=== PATIENT | male | born 1940 | race African-American/Black ===

== ENCOUNTER 2018-11-01 09:53 | Observation (INO) | payer OTHER ==
[2018-11-01] MEDS ORDERED: NALOXONE 0.4 MG/ML VIAL ONE (10:20)
[2018-11-01 10:31] LABS: Absolute Lymphocytes (CBC) 0.4 K/uL (0.7-4.9); Basophils % 0.3 % (0-1.3); Hematocrit 32.4 % (39.6-49.0); MPV 8.4 fL (7.6-11.3); RBC Red Blood Cell Count 3.59 M/uL (4.33-5.43)
[2018-11-01 10:34] LABS: Protime INR 1.29
[2018-11-01 10:43] LABS: ALT/SGPT 16 U/L (12-78); AST/SGOT 17 U/L (15-37); Albumin 3.4 g/dL (3.4-5.0); Alkaline Phosphatase 68 U/L (45-117); BUN Blood Urea Nitrogen 13 mg/dL (7-18); Bicarbonate 27 mmol/L (21-32); Bilirubin Direct 0.1 mg/dL (0-0.2); Bilirubin Total 0.3 mg/dL (0.2-1.0); CKMB Creatine Kinase MB 2.2 ng/mL (0.3-3.6); Creatine Phosphokinase 100 U/L (39-308); Glucose Level 281 mg/dL (74-106); Lipase 406 U/L (73-393); Potassium 4.2 mmol/L (3.5-5.1); Protein, Total 7.5 g/dL (6.4-8.2); Sodium Level 141 mmol/L (136-145); Troponin (Emerg Dept Use Only) 0.02 ng/mL (0.0-0.045)
[2018-11-01] MEDS ORDERED: CEFTRIAXONE/SWI 1gm 1 GM/10 ML SYR ONE (10:46)
[2018-11-01] MEDS ORDERED: NA CHLORIDE 0.9% 2,000 ML ONE (10:55)
--- NOTE | 2018-11-01 11:24 | EDPHYS ---
Physician Documentation [facility] Name: Del Elizondo Jr Age: 78 yrs Sex: Male : 1940 Arrival Date: 11/01/2018 Time: 09:55 Bed 6 Private MD: ED Physician Calixto Velazco HPI: 11/01 10:17 This 78 yrs old Black Male presents to ER via EMS with complaints of Altered Mental kdr Status. 10:17 The patient presents with decreased responsiveness. Onset: The symptoms/episode kdr began/occurred at an unknown time. Last known well was 4:00 PM yesterday. Actual onset is onknown. Possible causes: CVA or TIA, sepsis. Associated signs and symptoms: The patient has no apparent associated signs or symptoms. Current symptoms: In the emergency department the patient's symptoms are unchanged from the initial presentation. Patient's baseline: Neuro: alert and fully oriented, Motor: no deficits, Left BKA, Ambulation: unable to walk, Speech: normal for age. It is unknown whether or not the patient has had similar symptoms in the past. It is unknown whether or not the patient has recently seen a physician. Historical: - Allergies: 10:08 ACETAMINOPHEN; iw 10:08 Hydrochlorothiazide; iw 10:08 hydrocodone bitartrate (bulk); iw 10:08 Lisinopril; iw 10:08 tramadol; iw 10:04 hydrocodone bitartrate (bulk); tw2 10:04 Lisinopril; tw2 10:04 ACETAMINOPHEN; tw2 10:04 tramadol; tw2 10:04 Hydrochlorothiazide; tw2 - Home Meds: 10:04 Ativan 0.5 mg Oral tab 1 tab 3 times per day [Active]; Vitamin B-12 1,000 mcg Oral TbER tw2 [Active]; Eliquis 5 mg oral tab 1 tab 2 times per day [Active]; Imodium 2 mg Oral [Active]; metformin 500 mg Oral tab 1 tab 2 times per day [Active]; melatonin 3 mg Oral tab [Active]; metoprolol tartrate 25 mg Oral tab 1 tab 2 times per day [Active]; Miralax 17 gram Oral pwpk 1 packet once daily [Active]; thiamine HCl (vitamin B1) 100 mg Oral tab [Active]; modafinil 100 mg oral tab 2 tabs once daily [Active]; - PMHx: 10:08 Diabetes - NIDDM; Hypertension; Left BKA; iw 10:04 Diabetes - NIDDM; Hypertension; LEFT bka; tw2 - Immunization history:: Adult Immunizations. - Social history:: Smoking status: . - Ebola Screening: : Patient denies travel to an Ebola-affected area in the 21 days before illness onset. ROS: 10:17 Constitutional: Unable to assess due to AMS kdr 10:17 Unable to obtain ROS due to altered mental status. Exam: 10:17 Constitutional: This is a well developed, well nourished patient who is awake, alert, kdr and in no acute distress. Head/Face: Normocephalic, atraumatic. Eyes: Pupils equal round, pinpoint and poorly reactive to light. Lids and lashes normal. Conjunctiva and sclera are non-icteric and not injected. Cornea within normal limits. Periorbital areas with no swelling, redness, or edema. Neck: Trachea midline, no thyromegaly or masses palpated, and no cervical lymphadenopathy. Supple, full range of motion without nuchal rigidity, or vertebral point tenderness. No Meningismus. Chest/axilla: Normal chest wall appearance and motion. Nontender with no deformity. No lesions are appreciated. Cardiovascular: Regular rate and rhythm with a normal S1 and S2. No gallops, murmurs, or rubs. Normal PMI, no JVD. No pulse deficits. Respiratory: Lungs have equal breath sounds bilaterally, clear to auscultation and percussion. No rales, rhonchi or wheezes noted. No increased work of breathing, no retractions or nasal flaring. Abdomen/GI: Soft, non-tender, with normal bowel sounds. No distension or tympany. No guarding or rebound. No evidence of tenderness throughout. Back: No spinal tenderness. No costovertebral tenderness. Full range of motion. Skin: Warm, dry with normal turgor. Normal color with no rashes, no lesions, and no evidence of cellulitis. 10:17 Neuro: Exam negative for Unable to assess as the patient is not responsive to commands. 10:17 Psych: Exam negative for Unassessed due to AMS. Vital Signs: 10:08 BP 144 / 74; Pulse 89; Resp 16 S; Pulse Ox 100% on R/A; iw 10:10 Temp 97.9; sg 10:30 Weight 70.31 kg; sg 10:58 BP 136 / 64; Pulse 87; Resp 16; Pulse Ox 100% on R/A; tw2 11:58 BP 141 / 67; Pulse 82; Resp 17; Pulse Ox 99% on R/A; tw2 12:32 BP 123 / 71; Pulse 95; Resp 16; Pulse Ox 100% on R/A; tw2 13:40 BP 122 / 71; Pulse 81; Resp 17; Pulse Ox 99% on R/A; sg MDM: 10:09 Patient medically screened. 10:17 Data reviewed: vital signs, nurses notes, lab test result(s), EKG, radiologic studies. kdr Counseling: I had a detailed discussion with the patient and/or guardian regarding: the historical points, exam findings, and any diagnostic results supporting the discharge/admit diagnosis, lab results, radiology results. 11:46 ED course: D/w Dr. Lui. Since the patient is now able to talk and answer limited [facility] questions, will admit in observation status. 11/01 10:04 Order name: Glucose, Ancillary Testing; Complete Time: 10:17 EDNV 11/01 10:08 Order name: Basic Metabolic Panel [facility] 11/01 10:08 Order name: Blood Culture Adult (2) [facility] 11/01 10:08 Order name: CBC with Diff [facility] 11/01 10:08 Order name: Ckmb [facility] 11/01 10:08 Order name: CPK; Complete Time: 11:17 [facility] 11/01 10:08 Order name: Lactate; Complete Time: 11:17 [facility] 11/01 10:08 Order name: LFT's; Complete Time: 11:17 [facility] 11/01 10:08 Order name: Lipase; Complete Time: 11:17 [facility] 11/01 10:08 Order name: Procalcitonin; Complete Time: 11:17 [facility] 11/01 10:08 Order name: Protime (+inr); Complete Time: 11:17 [facility] 11/01 10:08 Order name: Ptt, Activated; Complete Time: 11:17 [facility] 11/01 10:08 Order name: Troponin (emerg Dept Use Only); Complete Time: 11:17 [facility] 11/01 10:08 Order name: Urine Microscopic Only [facility] 11/01 10:08 Order name: Chest Single View XRAY kdr 11/01 10:08 Order name: Accucheck; Complete Time: 11:48 kdr 11/01 10:08 Order name: Cardiac monitoring; Complete Time: 11:48 [facility] 11/01 10:08 Order name: EKG - Nurse/Tech; Complete Time: 11:48 [facility] 11/01 10:08 Order name: IV Saline Lock - Large Bore; Complete Time: 11:48 [facility] 11/01 10:08 Order name: Labs collected and sent; Complete Time: 11:48 [facility] 11/01 10:08 Order name: CT Head Brain wo Cont kdr 11/01 10:10 Order name: Basic Metabolic Panel; Complete Time: 11:17 EDMS 11/01 10:10 Order name: CKMB Creatine Kinase MB; Complete Time: 11:17 EDNV 11/01 11:50 Order name: Urine Dipstick--Ancillary (enter results) de 11/01 13:11 Order name: Glucose, Ancillary Testing EDNV 11/01 13:22 Order name: CBC Smear Scan EDNV 11/01 10:08 Order name: O2 Per Protocol; Complete Time: 11:48 [facility] 11/01 10:08 Order name: O2 Sat Monitoring; Complete Time: 11:48 [facility] 11/01 10:08 Order name: Urine Dipstick-Ancillary (obtain specimen); Complete Time: 11:48 [facility] 11/01 12:38 Order name: Cath; Complete Time: 12:38 sg Administered Medications: 10:10 Drug: NARcan 0.4 mg Route: IVP; Site: left antecubital; sg 12:36 Follow up: Response: No adverse reaction; No change in condition sg 11:00 Drug: NS 0.9% (30 ml/kg) 30 ml/kg Route: IV; Rate: bolus; Site: left antecubital; sg 11:13 Drug: Rocephin - (cefTRIAXone) 1 grams Route: IVPB; Infused Over: 30 mins; Site: left sg antecubital; 11:40 Follow up: Response: No adverse reaction; IV Status: Completed infusion sg 12:07 Drug: Insulin Regular Human 6 units {Co-Signature: tw2 (Millie Barrientos RN).} Route: IVP; sg Site: left antecubital; Disposition: 11/01/18 11:23 Hospitalization ordered by Ochoa Lui for Observation. Preliminary diagnosis are Altered mental status, unspecified, Hyperglycemia, unspecified. - Bed requested for Telemetry/MedSurg (observation). - Status is Observation. ms - Condition is Guarded. - Problem is new. - Symptoms are unchanged. UTI on Admission? No Signatures: Dispatcher [employer] EDSj Evans, RN RN sg Calixto Velazco MD MD kdr Kendra Domínguez RN RN iw Nishi Morales ms Kaye, Fox, PA PA Millie Hill RN RN tw2 Millie Barrientos RN tw2 Corrections: (The following items were deleted from the chart) 11:46 11:23 Hospitalization Ordered by Ochoa Sania YANG for Inpatient Admission. Preliminary kdr diagnosis is Altered mental status, unspecified; Hyperglycemia, unspecified. Bed requested for Telemetry/MedSurg (Inpatient). Status is Inpatient Admission. Condition is Guarded. Problem is new. Symptoms are unchanged. UTI on Admission? No. kdr 12:48 11:46 11/01/2018 11:23 Hospitalization Ordered by Ochoa Sania YANG for Observation. iw Preliminary diagnosis is Altered mental status, unspecified; Hyperglycemia, unspecified. Bed requested for Telemetry/MedSurg (observation). Status is Observation. Condition is Guarded. Problem is new. Symptoms are unchanged. UTI on Admission? No. kdr 14:05 12:48 11/01/2018 11:23 [facility] ms Preliminary diagnosis is Altered mental status, unspecified; Hyperglycemia, unspecified. Bed requested for Telemetry/MedSurg (observation). Status is Observation. Condition is Guarded. Problem is new. Symptoms are unchanged. UTI on Admission? No. iw
--- NOTE | 2018-11-01 11:24 | ER ---
Nurse's Notes [facility] Name: Del Elizod[facility] Jr Age: 78 yrs Sex: Male : 1940 Arrival Date: 11/01/2018 Time: 09:55 Bed 6 Private MD: Diagnosis: Altered mental status, unspecified;Hyperglycemia, unspecified Presentation: 11/01 09:55 Presenting complaint: EMS states: pt is normally A\T\OX4, this morning has not been iw responding verbally, pt has also had copious amounts of vomiting, also had diarrhea, last seen normal at 4 pm yesterday. Transition of care: patient was received from another setting of care (long-term care facility), [facility]. Onset of symptoms was November 01, 2018. Risk Assessment: Do you want to hurt yourself or someone else? Patient reports no desire to harm self or others. Initial Sepsis Screen: Does the patient meet any 2 criteria? Altered Mental Status. Does the patient have a suspected source of infection? No. Patient's initial sepsis screen is negative. Care prior to arrival: Medication(s) given: Normal saline infusion, 500 mL, IV initiated. 20 GA, in the left antecubital area, Glucose check: 300. 09:55 Method Of Arrival: EMS: [facility] iw 09:55 Acuity: TATIANA 2 iw Historical: - Allergies: 10:08 ACETAMINOPHEN; iw 10:08 Hydrochlorothiazide; iw 10:08 hydrocodone bitartrate (bulk); iw 10:08 Lisinopril; iw 10:08 tramadol; iw 10:04 hydrocodone bitartrate (bulk); tw2 10:04 Lisinopril; tw2 10:04 ACETAMINOPHEN; tw2 10:04 tramadol; tw2 10:04 Hydrochlorothiazide; tw2 - Home Meds: 10:04 Ativan 0.5 mg Oral tab 1 tab 3 times per day [Active]; Vitamin B-12 1,000 mcg Oral TbER tw2 [Active]; Eliquis 5 mg oral tab 1 tab 2 times per day [Active]; Imodium 2 mg Oral [Active]; metformin 500 mg Oral tab 1 tab 2 times per day [Active]; melatonin 3 mg Oral tab [Active]; metoprolol tartrate 25 mg Oral tab 1 tab 2 times per day [Active]; Miralax 17 gram Oral pwpk 1 packet once daily [Active]; thiamine HCl (vitamin B1) 100 mg Oral tab [Active]; modafinil 100 mg oral tab 2 tabs once daily [Active]; - PMHx: 10:08 Diabetes - NIDDM; Hypertension; Left BKA; iw 10:04 Diabetes - NIDDM; Hypertension; LEFT bka; tw2 - Immunization history:: Adult Immunizations. - Social history:: Smoking status: . - Ebola Screening: : Patient denies travel to an Ebola-affected area in the 21 days before illness onset. Screenin:00 Fall Risk Secondary diagnosis (15 points) impaired mobility. tw2 10:30 Abuse screen: Denies threats or abuse. Denies injuries from another. Nutritional sg screening: No deficits noted. Tuberculosis screening: No symptoms or risk factors identified. Never had TB. Assessment: 10:00 General: Appears in no apparent distress. well groomed, well developed, well nourished, sg Behavior is calm, cooperative, appropriate for age. Pain: Unable to use pain scale. Does not appear to understand pain scale. Neuro: Level of Consciousness is awake, obeys commands, Oriented to will not speak at this time. Cardiovascular: Patient's skin is warm and dry. Chest pain is denied. Respiratory: Airway is patent Respiratory effort is even, unlabored, Respiratory pattern is regular, symmetrical, Breath sounds are clear bilaterally. GI: Abdomen is flat, non-distended. : in a clean brief at this time. EENT: No signs and/or symptoms were reported regarding the EENT system. Derm: Skin is pink, warm \T\ dry. Musculoskeletal: No signs and/or symptoms reported regarding the musculoskeletal system. 10:37 Reassessment: Patient appears in no apparent distress at this time. Patient and/or tw2 family updated on plan of care and expected duration. Pain level reassessed. 11:09 Reassessment: Patient appears in no apparent distress at this time. Patient and/or sg family updated on plan of care and expected duration. Pain level reassessed. four attempts for 2nd set of blood cultures, non successful. notified. 12:33 Reassessment: Patient appears in no apparent distress at this time. Patient and/or tw2 family updated on plan of care and expected duration. Pain level reassessed. Vital Signs: 10:08 BP 144 / 74; Pulse 89; Resp 16 S; Pulse Ox 100% on R/A; iw 10:10 Temp 97.9; sg 10:30 Weight 70.31 kg; sg 10:58 BP 136 / 64; Pulse 87; Resp 16; Pulse Ox 100% on R/A; tw2 11:58 BP 141 / 67; Pulse 82; Resp 17; Pulse Ox 99% on R/A; tw2 12:32 BP 123 / 71; Pulse 95; Resp 16; Pulse Ox 100% on R/A; tw2 13:40 BP 122 / 71; Pulse 81; Resp 17; Pulse Ox 99% on R/A; sg ED Course: 09:40 Initial lab(s) drawn, by me, sent to lab. Maintain EMS IV. Dressing intact. Good blood sg return noted. Site clean \T\ dry. Gauge \T\ site: 20 G LAC. 09:55 Patient arrived in ED. iw 09:59 Millie Barrientos RN is Primary Nurse. tw2 10:04 Calixto Velazco MD is Attending Physician. kdr 10:04 EKG done, by ED staff, reviewed by Calixto Velazco MD. dh3 10:07 Triage completed. iw 10:08 Arm band placed on. iw 10:08 Patient has correct armband on for positive identification. Bed in low position. Call sg light in reach. Side rails up X2. manager monitoring on. Pulse ox on. NIBP on. Warm blanket given. Head of bed. 10:30 initial lactate sent. Missed attempt(s): 22 gauge in right forearm. Bleeding sg controlled, band aid applied, catheter tip intact. 10:37 Chest Single View XRAY In Process Unspecified. EDMS 10:42 First set of blood cultures drawn by me. Missed attempt(s): 22 gauge in right forearm. dh3 Bleeding controlled, band aid applied, catheter tip intact. 10:44 CT Head Brain wo Cont In Process Unspecified. EDMS 11:22 Ochoa Lui DO is Hospitalizing Provider. kdr 11:42 Straight cath inserted, using sterile technique, 15 Fr Returned clear yellow urine. dh3 Patient tolerated well. 100mL specimen collected. 13:50 No provider procedures requiring assistance completed. Patient admitted, IV remains in sg place. intact, No redness/swelling at site. Administered Medications: 10:10 Drug: NARcan 0.4 mg Route: IVP; Site: left antecubital; sg 12:36 Follow up: Response: No adverse reaction; No change in condition sg 11:00 Drug: NS 0.9% (30 ml/kg) 30 ml/kg Route: IV; Rate: bolus; Site: left antecubital; sg 11:13 Drug: Rocephin - (cefTRIAXone) 1 grams Route: IVPB; Infused Over: 30 mins; Site: left sg antecubital; 11:40 Follow up: Response: No adverse reaction; IV Status: Completed infusion sg 12:07 Drug: Insulin Regular Human 6 units {Co-Signature: tw2 (Millie Barrientos RN).} Route: IVP; sg Site: left antecubital; Outcome: 11:23 Decision to Hospitalize by Provider. kdr 13:50 Admitted to Tele accompanied by tech, room 420, with chart, Report called to Arleth moreira RN 13:50 Condition: stable 13:50 Instructed on the need for admit, safety practices, Demonstrated understanding of instructions. 14:05 Patient left the ED. ms Signatures: Dispatcher [employer] EDMS Sj Mcintyre RN RN sg Rittger, Kevin, MD MD kdr Kendra Domínguez RN RN Nishi Morales ms Millie Barrientos RN RN 2 Shasta Baker [facility] Millie Barrientos RN tw2 Corrections: (The following items were deleted from the chart) 10:19 10:19 Inserted saline lock: 22 gauge in right antecubital area, using aseptic tw2 technique. Blood collected. tw2 10:59 10:37 Reassessment: Patient appears in no apparent distress at this time. Patient tw2 and/or family updated on plan of care and expected duration. Pain level reassessed. Patient is alert, oriented x 3, equal unlabored respirations, skin warm/dry/pink. sg
[2018-11-01 12:11] LABS: Urine Bacteria <20 /HPF (NONE SEEN); Urine Culture Reflex Order NOT NEEDED; Urine RBC <5 /HPF (NONE SEEN)
[2018-11-01] MEDS ORDERED: INSULIN -REGULAR HUMAN 50 UNIT/0.5 ML ML ONE (12:13)
[2018-11-01 12:56] LABS: Urine Blood NEGATIVE (NEG); Urine Glucose 2+ (NEG); Urine Protein 2+ (NEG)
[2018-11-01 13:20] LABS: Absolute Monocytes 0.2 K/uL (0.1-1.3)
[2018-11-01 13:21] LABS: Blood Morphology Comment NOT SEEN (NOT SEEN); Platelet Estimate ADEQ; Urine White Blood Cell Casts OK
--- NOTE | 2018-11-01 14:09 | P.HP ---
Certification for Inpatient Patient admitted to: Observation With expected LOS: <2 Midnights Patient will require the following post-hospital care: Other (Back to shelter) Practitioner: I am a practitioner with admitting privileges, knowledge of patient current condition, hospital course, and medical plan of care. Services: Services provided to patient in accordance with Admission requirements found in Title 42 Section 412.3 of the Code of Federal Regulations Patient History Date of Service: 11/01/18 Primary Care Provider: [facility] Reason for admission: Altered mental status History of Present Illness: 78-year-old male presented to the emergency room with altered mental status mainly confusion. Patient is a resident at [facility]. Patient with history of diabetes, hypertension and takes chronic anti coagulation therapy for history of DVT. ER reports that shelter mentioned that he was doing well prior to 4:00 p.m. yesterday. Patient was found confused today. He was brought in for further evaluation. No indication of chest pain, shortness of breath, fever or chills noted. Upon initial evaluation in the emergency room vital signs were stable. He was afebrile. Patient did not appear in any respiratory distress. Initial workup so for unremarkable. CT head negative. Chest x-ray negative. Hemoglobin 10.5 , white count 5.6. Sodium 141, potassium 4.2, BUN of 13, creatinine 0.94 with a GFR of greater than 90. Glucose was elevated upon arrival. Lactic acid negative. Pro calcitonin negative. Urine unremarkable. Patient was given Narcan in the ER. Patient was admitted for further evaluation. When I saw the patient in the ER, he appeared confused but able to answer questions appropriately with nodding and with voice. He appeared weak. He was able to move all 4s. Patient with history of left below-knee amputation. Allergies acetaminophen [From [place]] Allergy (Verified 10/17/14 13:35) Anaphylaxis hydrocodone bitartrate [From [place]] Allergy (Verified 10/17/14 13:35) Anaphylaxis lisinopril Allergy (Verified 10/01/14 21:23) Nausea/Vomiting tramadol Allergy (Verified 10/01/14 21:23) Nausea/Vomiting Home medications list reviewed: Yes Home Medications: Aspirin 81 mg PO DAILY 10/01/14 Olmesartan Medoxomil [Benicar] 5 mg PO DAILY 10/01/14 Glyburide [Diabeta] 1.25 mg PO BID #60 tablet 10/06/14 Hydrocodone 7.5/APAP 325 [[place] 7.5/325 mg*] 1 tab PO Q4H PRN #60 tab 10/06/14 Metoprolol Tartrate [Lopressor*] 50 mg PO BID #60 tab 10/06/14 Minocycline HCl [Minocin] 100 mg PO BID #20 capsule 10/06/14 Valsartan [Diovan*] 160 mg PO BID #60 tab 10/06/14 Metformin HCl [Glucophage] 1,000 mg PO BID 10/17/14 Valsartan [Diovan] 160 mg PO BID 10/17/14 - Past Medical/Surgical History Diabetic: Yes -: Diabetes mellitus type 2 -: HTN -: 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 - Family History Family History: Reviewed- Non-Contributory - Family History Mother -: Diabetes - Social History Smoking Status: Unknown if ever smoked Alcohol use: No CD- Drugs: No Caffeine use: No Place of [facility] Review of Systems is unable to be obtained Physical Examination - Physical Exam General: Alert, In no apparent distress, Cooperative, Cachectic, Disheveled, Other (Patient able to follow commands. He does nod to questions. He is able to answer some questions by voice.) HEENT: Atraumatic, Normocephalic, Other (Pupils pinpoint but equal. Dry mucous membranes noted.) Neck: Supple, No Thyromegaly Respiratory: Clear to auscultation bilaterally, Normal air movement Cardiovascular: Normal pulses, Regular rate/rhythm Gastrointestinal: Normal bowel sounds, Soft and benign, Non-distended, No tenderness, No masses, No rebound, No guarding Musculoskeletal: No tenderness, No warmth Integumentary: Tenderness/swelling (Mild pitting edema to the lower extremities bilateral), Other (Left below-knee amputation) Neurological: Normal speech, Normal strength at 5/5 x4 extr, Normal tone, Other (Confused) - Studies Laboratory Data (last 24 hrs) 11/01/18 10:10: PT 15.1 H, INR 1.29, APTT 32.2 11/01/18 10:10: WBC 5.6, Hgb 10.5 L, Hct 32.4 L, Plt Count 186 11/01/18 10:10: Sodium 141, Potassium 4.2, BUN 13, Creatinine 0.94, Glucose 281 H, Total Bilirubin 0.3, AST 17, ALT 16, Alkaline Phosphatase 68, Lipase 406 H Assessment and Plan - Plan Impression: Altered mental status mainly confusion etiology unknown possibly medication related Diabetes mellitus type 2 with hyperglycemia Hypertension History of left below-knee amputation 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 Case discussed with Neurology. So far no evidence of infection. Will order echocardiogram, carotid Doppler and stroke protocol MRI to further assess. Will also order EEG. Patient is taking modafinil. Will discontinue this medication as recommended by neurology. Will need to call shelter to evaluate baseline status and to see if patient was given any new medication recently. Will also call family for details. Will continue to monitor and reassess. Fall precautions, aspiration precaution, and seizure precaution in place. Will have physical therapy, occupational therapy and speech therapy evaluate patient. Diabetes mellitus type 2 with hyperglycemia: Will monitor Accu-Cheks and sliding scale. Hypertension: Will continue with shelter medication-metoprolol. Will monitor and adjust appropriately. History of left below-knee amputation: Stump appears without any ulcers. 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 Discharge Plan: [facility] Plan to discharge in: 24 Hours - Advance Directives Does patient have a Living Will: No Does patient have a Durable POA for Healthcare: No - Code Status/Comfort Care Code Status Assessed: No (Will need to assess advanced directives with family) Time Spent Managing Pts Care (In Minutes): 55
--- NOTE | 2018-11-01 14:11 | RAD REPORT ---
EXAM DESCRIPTION: CT - Head Brain Wo Cont - 11/01/2018 11:49 am CLINICAL HISTORY: Alteration of awareness/confusion COMPARISON: None TECHNIQUE: Computed axial tomography of the head was obtained. IV contrast was not requested. All CT scans are performed using dose optimization technique as appropriate and may include automated exposure control or mA/KV adjustment according to patient size. FINDINGS: An intracranial bleed is not seen . The ventricles are normal in caliber. No extra-axial fluid collection is noted. Mild to moderate low-density areas within periventricular, deep and subcortical white matter likely represent ischemic changes secondary to small vessel disease . Fluid within the sinuses/ mastoids is not seen. IMPRESSION: No acute intracranial abnormality is seen. If patient's symptoms persist MRI of the bra in would be recommended.
--- OUTSIDE RECORDS SUMMARY | 2018-11-01 14:35 | XMS REPORT | Clinical Summary ---
:1940 Author Organization [facility] Address [address] [place] [address] Care Team Providers Name Role Phone Eliana Jesus MD Primary Care Provider Allergies Active Allergy Reactions Severity Noted Date Comments Hydrochlorothiazide Swelling High 04/21/2018 Tongue/Lip Lisinopril Swelling High 04/21/2018 Tongue/Lip Medications Medication Sig Dispensed Refills Start Date End Date Status aspirin Take 81 mg by 0 Active (ECOTRIN) 81 MG mouth daily. enteric coated tablet olmesartan Take 40 mg by 0 Active (BENICAR) 40 MG mouth daily. tablet metFORMIN Take 500 mg by 0 Active (GLUCOPHAGE) 500 mouth daily with mg tablet breakfast. glipiZIDE Take 5 mg by mouth 0 Active (GLUCOTROL) 2.5 2 (two) times a MG 24 hr tablet day with meals. acetaminophen-co Take 1 tablet by 0 Active deine (TYLENOL mouth as needed WITH CODEINE #3) for moderate pain. 300-30 mg per tablet furosemide Take 40 mg by 0 Discontinued (LASIX) 40 mg/4 mouth daily. 8 mL solution oral solution potassium Take 20 mEq by 0 Discontinued chloride mouth daily. 8 (K-DUR,KLOR-CON) Unknown dose 10 MEQ CR tablet amount furosemide Take 40 mg by 0 Discontinued (LASIX) 40 mg mouth daily. 8 tablet docusate sodium Take 1 capsule 60 capsule 0 04/30/2018 (COLACE) 100 MG (100 mg total) by 8 capsule mouth 2 (two) times a day for 30 days. bisacodyl Take 1 tablet (5 30 tablet 0 04/30/2018 (DULCOLAX) 5 mg mg total) by mouth 8 EC tablet daily as needed for constipation for up to 2 days. piperacillin-marleny Infuse 3.375 g 0 05/01/2018 obactam (ZOSYN) into a venous 8 3.375 gram in 50 catheter every 8 mL Mini-Bag Plus (eight) hours for 2 days. vancomycin 1,000 Infuse 1,000 mg 1 each 0 04/30/2018 mg in sodium into a venous 8 chloride 0.9% catheter every 18 250 mL IVPB (eighteen) hours for 2 days. ascorbic acid, Take 1 tablet (500 30 tablet 0 05/01/2018 vitamin C, mg total) by mouth 8 (VITAMIN C) 500 daily for 30 days. MG tablet zinc sulfate Take 1 capsule 60 capsule 0 04/30/2018 (ZINCATE) 220 (220 mg total) by 8 (50) mg capsule mouth 2 (two) times a day for 30 days. Active Problems Problem Noted Date Diabetic foot ulcer 04/21/2018 Encounters Date Type Specialty Care Team Description 04/25/2018 [facility] MD Cristóbal WOUND EXPLORATION, BKA REVISION 04/25/2018 Anesthesia Event General Surgery Cami Delarosa MD 04/21/2018 Anesthesia Event General Surgery Cami Delarosa MD 04/21/2018 [facility] Am[facility], Below MD Cristóbal Knee 04/21/2018 - Hospital Encounter General Internal Eliana Jesus Chronic systolic congestive heart failure (HCC); 04/30/2018 Medicine MD Guillermina Open wound of left lower extremity, initial encounter after 10/31/2017 Social History Tobacco Use Types Packs/Day Years Used Date Former Smoker Alcohol Use Drinks/Week oz/Week Comments No Alcohol Habits Answer Date Recorded How often do you have a drink containing alcohol? Never 04/21/2018 How many drinks containing alcohol do you have on a typical Not asked day when you are drinking? How often do you have six or more drinks on one occasion? Not asked Sex Assigned at Date Recorded Not on file Job Start Date Occupation Industry Not on file Not on file Not on file Travel History Travel Start Travel End No recent travel history available. Last Filed Vital Signs Vital Sign Reading Time Taken Blood Pressure 156/90 04/30/2018 7:00 PM [employer]URAL RESOURCE MANAGER Pulse 99 04/30/2018 7:00 PM NATURAL RESOURCE MANAGER Temperature 36.7 C (98 F) 04/30/2018 7:00 PM NATURAL RESOURCE MANAGER Respiratory Rate 20 04/30/2018 7:00 PM NATURAL RESOURCE MANAGER Oxygen Saturation 99% 04/30/2018 9:53 PM NATURAL RESOURCE MANAGER Inhaled Oxygen Concentration - - Weight 71.4 kg (157 lb 8 oz) 04/30/2018 5:18 AM NATURAL RESOURCE MANAGER Height 182.9 cm (6') 04/21/2018 3:15 AM NATURAL RESOURCE MANAGER Body Mass Index 21.36 04/21/2018 3:15 AM NATURAL RESOURCE MANAGER Plan of Treatment Health Maintenance Due Date Last Done Comments DIABETIC RETINAL EYE EXAM 1940 URINE MICROALBUMIN 1951 SHINGLES VACCINES (#1) 1991 65+ PNEUMOCOCCAL VACCINE (1 of 2 - PCV13) 2006 PNEUMOCOCCAL POLYSACCHARIDE VACCINE AGE 65 2006 AND OVER INFLUENZA VACCINE 01/03/2019 DIABETIC FOOT EXAM 04/21/2019 04/21/2018, 04/21/2018 Procedures Procedure Name Priority Date/Time Associated Comments Diagnosis POC GLUCOSE Routine 04/30/2018 9:25 Results for this PM [employer]URAL RESOURCE MANAGER procedure are in the results section. POC GLUCOSE Routine 04/30/2018 5:09 Results for this PM [employer]URAL RESOURCE MANAGER procedure are in the results section. POC GLUCOSE Routine 04/30/2018 11:34 Results for this AM [employer]URAL RESOURCE MANAGER procedure are in the results section. POC GLUCOSE Routine 04/30/2018 7:27 Results for this AM NATURAL RESOURCE MANAGER procedure are in the results section. POC GLUCOSE Routine 04/29/2018 8:54 Results for this PM [employer]URAL RESOURCE MANAGER procedure are in the results section. POC GLUCOSE Routine 04/29/2018 5:01 Results for this PM NATURAL RESOURCE MANAGER procedure are in the results section. POC GLUCOSE Routine 04/29/2018 12:23 Results for this PM [employer]URAL RESOURCE MANAGER procedure are in the results section. ESTIMATED GFR Routine 04/29/2018 6:40 Results for this AM NATURAL RESOURCE MANAGER procedure are in the results section. BASIC METABOLIC PANEL Routine 04/29/2018 6:40 Results for this AM NATURAL RESOURCE MANAGER procedure are in the results section. HC COMPLETE BLD COUNT Routine 04/29/2018 6:40 Results for this W/AUTO DIFF AM NATURAL RESOURCE MANAGER procedure are in the results section. PREPARE RBC Timed 04/29/2018 12:29 Results for this AM NATURAL RESOURCE MANAGER procedure are in the results section. TYPE AND SCREEN Timed 04/29/2018 12:29 Results for this AM NATURAL RESOURCE MANAGER procedure are in the results section. POC GLUCOSE Routine 04/28/2018 8:38 Results for this PM [employer]URAL RESOURCE MANAGER procedure are in the results section. POC GLUCOSE Routine 04/28/2018 4:48 Results for this PM [employer]URAL RESOURCE MANAGER procedure are in the results section. POC GLUCOSE Routine 04/28/2018 12:45 Results for this PM NATURAL RESOURCE MANAGER procedure are in the results section. POC GLUCOSE Routine 04/28/2018 7:50 Results for this AM NATURAL RESOURCE MANAGER procedure are in the results section. HC COMPLETE BLD COUNT Routine 04/28/2018 4:40 Results for this W/AUTO DIFF AM NATURAL RESOURCE MANAGER procedure are in the results section. POC GLUCOSE Routine 04/28/2018 4:36 Results for this AM NATURAL RESOURCE MANAGER procedure are in the results section. POC GLUCOSE Routine 04/27/2018 9:17 Results for this PM [employer]URAL RESOURCE MANAGER procedure are in the results section. VANCOMYCIN LEVEL, Timed 04/27/2018 8:55 Results for this TROUGH PM NATURAL RESOURCE MANAGER procedure are in the results section. POC GLUCOSE Routine 04/27/2018 5:14 Results for this PM NATURAL RESOURCE MANAGER procedure are in the results section. POC GLUCOSE Routine 04/27/2018 12:58 Results for this PM [employer]URAL RESOURCE MANAGER procedure are in the results section. POC GLUCOSE Routine 04/27/2018 7:50 Results for this AM NATURAL RESOURCE MANAGER procedure are in the results section. ESTIMATED GFR Routine 04/27/2018 5:50 Results for this AM NATURAL RESOURCE MANAGER procedure are in the results section. BASIC METABOLIC PANEL Routine 04/27/2018 5:50 Results for this AM NATURAL RESOURCE MANAGER procedure are in the results section. HC COMPLETE BLD COUNT Routine 04/27/2018 5:50 Results for this W/AUTO DIFF AM NATURAL RESOURCE MANAGER procedure are in the results section. POC GLUCOSE Routine 04/26/2018 9:44 Results for this PM [employer]URAL RESOURCE MANAGER procedure are in the results section. POC GLUCOSE Routine 04/26/2018 5:20 Results for this PM [employer]URAL RESOURCE MANAGER procedure are in the results section. POC GLUCOSE Routine 04/26/2018 12:19 Results for this PM [employer]URAL RESOURCE MANAGER procedure are in the results section. POC GLUCOSE Routine 04/26/2018 8:08 Results for this AM NATURAL RESOURCE MANAGER procedure are in the results section. ESTIMATED GFR Routine 04/26/2018 4:50 Results for this AM NATURAL RESOURCE MANAGER procedure are in the results section. COMPREHENSIVE Routine 04/26/2018 4:50 Results for this METABOLIC PANEL AM NATURAL RESOURCE MANAGER procedure are in the results section. HC COMPLETE BLD COUNT Routine 04/26/2018 4:50 Results for this W/AUTO DIFF AM NATURAL RESOURCE MANAGER procedure are in the results section. POC GLUCOSE Routine 04/25/2018 8:45 Results for this PM [employer]URAL RESOURCE MANAGER procedure are in the results section. POC GLUCOSE Routine 04/25/2018 5:13 Results for this PM [employer]URAL RESOURCE MANAGER procedure are in the results section. POC GLUCOSE Routine 04/25/2018 1:23 Results for this PM [employer]URAL RESOURCE MANAGER procedure are in the results section. POC GLUCOSE Routine 04/25/2018 12:26 Results for this PM [employer]URAL RESOURCE MANAGER procedure are in the results section. POC GLUCOSE Routine 04/25/2018 11:35 Results for this AM NATURAL RESOURCE MANAGER procedure are in the results section. SURGICAL PATHOLOGY Routine 04/25/2018 10:54 Results for this REQUEST AM NATURAL RESOURCE MANAGER procedure are in the results section. ANESTHESIA INTUBATION Routine 04/25/2018 9:43 AM NATURAL RESOURCE MANAGER Procedure Note - Sharlene Lares MD - 04/25/2018 9:43 AM NATURAL RESOURCE MANAGER ANESTHESIA INTUBATION Date/Time: 04/25/2018 9:34 AM Performed by: Sharlene Lares MD Authorized by: Sharlene Lares MD Location: OR Difficult Airway: No Anesthesiologist: Sharlene Lares MD Preoxygenated with 100% O2: Yes C-spine Precautions Maintained Throughout: Yes Mask Ventilation: Not attempted Final Airway Type: Supraglottic airway Final LMA: Unique LMA Size: 4 Number of Attempts at Approach: 1 POC GLUCOSE Routine 04/25/2018 8:03 AM Results for this [employer]URAL RESOURCE MANAGER procedure are in the results section. VANCOMYCIN LEVEL, Timed 04/25/2018 7:57 AM Results for this TROUGH NATURAL RESOURCE MANAGER procedure are in the results section. PREPARE RBC Timed 04/25/2018 4:15 AM Results for this NATURAL RESOURCE MANAGER procedure are in the results section. MANUAL DIFFERENTIAL Routine 04/25/2018 4:15 AM Results for this NATURAL RESOURCE MANAGER procedure are in the results section. PROTHROMBIN TIME WITH Routine 04/25/2018 4:15 AM Results for this INR NATURAL RESOURCE MANAGER procedure are in the results section. ESTIMATED GFR Routine 04/25/2018 4:15 AM Results for this NATURAL RESOURCE MANAGER procedure are in the results section. TYPE AND SCREEN Routine 04/25/2018 4:15 AM Results for this NATURAL RESOURCE MANAGER procedure are in the results section. PHOSPHORUS LEVEL Routine 04/25/2018 4:15 AM Results for this NATURAL RESOURCE MANAGER procedure are in the results section. MAGNESIUM LEVEL Routine 04/25/2018 4:15 AM Results for this NATURAL RESOURCE MANAGER procedure are in the results section. CBC WITH PLATELET AND Routine 04/25/2018 4:15 AM Results for this DIFFERENTIAL NATURAL RESOURCE MANAGER procedure are in the results section. BASIC METABOLIC PANEL Routine 04/25/2018 4:15 AM Results for this NATURAL RESOURCE MANAGER procedure are in the results section. POC GLUCOSE Routine 04/24/2018 9:50 PM Results for this NATURAL RESOURCE MANAGER procedure are in the results section. POC GLUCOSE Routine 04/24/2018 9:11 PM Results for this NATURAL RESOURCE MANAGER procedure are in the results section. POC GLUCOSE Routine 04/24/2018 4:33 PM Results for this NATURAL RESOURCE MANAGER procedure are in the results section. POC GLUCOSE Routine 04/24/2018 11:32 AM Results for this NATURAL RESOURCE MANAGER procedure are in the results section. POC GLUCOSE Routine 04/24/2018 7:45 AM Results for this NATURAL RESOURCE MANAGER procedure are in the results section. ESTIMATED GFR Routine 04/24/2018 4:20 AM Results for this NATURAL RESOURCE MANAGER procedure are in the results section. BASIC METABOLIC PANEL Routine 04/24/2018 4:20 AM Results for this NATURAL RESOURCE MANAGER procedure are in the results section. HC COMPLETE BLD COUNT Routine 04/24/2018 4:20 AM Results for this W/AUTO DIFF NATURAL RESOURCE MANAGER procedure are in the results section. POC GLUCOSE Routine 04/23/2018 9:08 PM Results for this NATURAL RESOURCE MANAGER procedure are in the results section. VANCOMYCIN LEVEL, Timed 04/23/2018 6:08 PM Results for this TROUGH NATURAL RESOURCE MANAGER procedure are in the results section. POC GLUCOSE Routine 04/23/2018 5:01 PM Results for this NATURAL RESOURCE MANAGER procedure are in the results section. POC GLUCOSE Routine 04/23/2018 10:56 AM Results for this NATURAL RESOURCE MANAGER procedure are in the results section. POC GLUCOSE Routine 04/23/2018 7:39 AM Results for this NATURAL RESOURCE MANAGER procedure are in the results section. POC GLUCOSE Routine 04/22/2018 9:17 PM Results for this NATURAL RESOURCE MANAGER procedure are in the results section. POC GLUCOSE Routine 04/22/2018 4:34 PM Results for this NATURAL RESOURCE MANAGER procedure are in the results section. US DUPLEX ARTERIAL Routine 04/22/2018 3:27 PM Results for this LOWER EXTREMITY RIGHT NATURAL RESOURCE MANAGER procedure are in the results section. POC GLUCOSE Routine 04/22/2018 1:11 PM Results for this NATURAL RESOURCE MANAGER procedure are in the results section. ECHOCARDIOGRAM 2D Routine 04/22/2018 11:00 AM Chronic systolic Results for this COMPLETE W MMODE NATURAL RESOURCE MANAGER congestive heart procedure are in SPECTRAL COLOR DOPPLER failure (HCC) the results (88141) section. POC GLUCOSE Routine 04/22/2018 8:58 AM Results for this NATURAL RESOURCE MANAGER procedure are in the results section. POC GLUCOSE Routine 04/22/2018 4:50 AM Results for this NATURAL RESOURCE MANAGER procedure are in the results section. PHOSPHORUS LEVEL STAT 04/22/2018 4:48 AM Results for this NATURAL RESOURCE MANAGER procedure are in the results section. ESTIMATED GFR STAT 04/22/2018 4:48 AM Results for this NATURAL RESOURCE MANAGER procedure are in the results section. COMPREHENSIVE METABOLIC STAT 04/22/2018 4:48 AM Results for this PANEL NATURAL RESOURCE MANAGER procedure are in the results section. PARTIAL THROMBOPLASTIN STAT 04/22/2018 4:48 AM Results for this TIME (PTT) NATURAL RESOURCE MANAGER procedure are in the results section. PROTHROMBIN TIME WITH STAT 04/22/2018 4:48 AM Results for this INR NATURAL RESOURCE MANAGER procedure are in the results section. LACTIC ACID LEVEL STAT 04/22/2018 4:48 AM Results for this NATURAL RESOURCE MANAGER procedure are in the results section. MAGNESIUM LEVEL STAT 04/22/2018 4:48 AM Results for this NATURAL RESOURCE MANAGER procedure are in the results section. IONIZED CALCIUM STAT 04/22/2018 4:48 AM Results for this NATURAL RESOURCE MANAGER procedure are in the results section. HC COMPLETE BLD COUNT STAT 04/22/2018 4:48 AM Results for this W/AUTO DIFF NATURAL RESOURCE MANAGER procedure are in the results section. POC GLUCOSE Routine 04/22/2018 12:47 AM Results for this NATURAL RESOURCE MANAGER procedure are in the results section. CT HEAD WO CONTRAST STAT 04/21/2018 11:18 PM Results for this NATURAL RESOURCE MANAGER procedure are in the results section. ECG 12-LEAD STAT 04/21/2018 10:56 PM Results for this NATURAL RESOURCE MANAGER procedure are in the results section. IONIZED CALCIUM, STAT 04/21/2018 10:48 PM Results for this ARTERIAL NATURAL RESOURCE MANAGER procedure are in the results section. ARTERIAL BLOOD GAS STAT 04/21/2018 10:48 PM Results for this NATURAL RESOURCE MANAGER procedure are in the results section. XR CHEST 1 VW PORTABLE STAT 04/21/2018 10:47 PM Results for this NATURAL RESOURCE MANAGER procedure are in the results section. LACTIC ACID LEVEL STAT 04/21/2018 10:45 PM Results for this NATURAL RESOURCE MANAGER procedure are in the results section. ESTIMATED GFR STAT 04/21/2018 10:45 PM Results for this NATURAL RESOURCE MANAGER procedure are in the results section. URINALYSIS SCREEN AND Routine 04/21/2018 10:45 PM Results for this MICROSCOPY, WITH REFLEX NATURAL RESOURCE MANAGER procedure are in TO CULTURE the results section. COMPREHENSIVE METABOLIC STAT 04/21/2018 10:45 PM Results for this PANEL NATURAL RESOURCE MANAGER procedure are in the results section. PARTIAL THROMBOPLASTIN STAT 04/21/2018 10:45 PM Results for this TIME (PTT) NATURAL RESOURCE MANAGER procedure are in the results section. PROTHROMBIN TIME WITH STAT 04/21/2018 10:45 PM Results for this INR NATURAL RESOURCE MANAGER procedure are in the results section. PHOSPHORUS LEVEL STAT 04/21/2018 10:45 PM Results for this NATURAL RESOURCE MANAGER procedure are in the results section. MAGNESIUM LEVEL STAT 04/21/2018 10:45 PM Results for this NATURAL RESOURCE MANAGER procedure are in the results section. HC COMPLETE BLD COUNT Routine 04/21/2018 10:45 PM Results for this W/AUTO DIFF NATURAL RESOURCE MANAGER procedure are in the results section. POC GLUCOSE Routine 04/21/2018 10:31 PM Results for this NATURAL RESOURCE MANAGER procedure are in the results section. GRAM STAIN Routine 04/21/2018 10:30 PM Results for this NATURAL RESOURCE MANAGER procedure are in the results section. URINE CULTURE Routine 04/21/2018 10:30 PM Results for this NATURAL RESOURCE MANAGER procedure are in the results section. [place] AN ELECTIVE Routine 04/21/2018 9:39 PM ENDOTRACHEAL AIRWAY NATURAL RESOURCE MANAGER Procedure Note - Sandra Jang CRNA - 04/21/2018 9:39 PM NATURAL RESOURCE MANAGER ANESTHESIA INTUBATION Date/Time: 04/21/2018 9:23 PM Performed by: Sandra Jang CRNA Authorized by: Cami Delarosa MD Location: OR Urgency: Elective Difficult Airway: No Anesthesiologist: Cami Delarosa MD Resident/COCOA BEAN ROASTER HELPER/AA: Sandra Jang CRNA Performed by: anesthesiologist and resident/COCOA BEAN ROASTER HELPER/AA Preoxygenated with 100% O2: Yes Mask Ventilation: Not attempted Final Airway Type: Endotracheal airway Final Endotracheal Airway: ETT Cuffed: Yes Technique Used: Direct laryngoscopy Devices/Methods Used in Placement: Intubating stylet Insertion Site: Oral Blade Type: [place] Laryngoscope Blade/Videolaryngoscope Blade Size: 2 ETT Size (mm): 7.0 Cuff at minimum occlusion pressure: Yes Measured from: Gums ETT to Gums (cm): 22 Placement Verified by: CO2 detection, direct visualization and equal breath sounds Laryngoscopic view: Grade IIb - view of arytenoids or posterior of glottis only Rapid Sequence Induction (RSI): Yes Modified RSI: No Number of Attempts at Approach: 1 Medications Administered Succinylcholine (ANECTINE), 100 mg etomidate (AMIDATE), 16 mg POC GLUCOSE Routine 04/21/2018 8:54 PM NATURAL RESOURCE MANAGER ECG PRE/POST OP STAT 04/21/2018 7:39 PM NATURAL RESOURCE MANAGER POC GLUCOSE Routine 04/21/2018 7:02 PM NATURAL RESOURCE MANAGER BLOOD CULTURE, AEROBIC & Routine 04/21/2018 4:50 PM NATURAL RESOURCE MANAGER Results for this ANAEROBIC procedure are in the results section. BLOOD CULTURE, AEROBIC & Routine 04/21/2018 4:45 PM NATURAL RESOURCE MANAGER Results for this ANAEROBIC procedure are in the results section. POC GLUCOSE Routine 04/21/2018 3:37 PM NATURAL RESOURCE MANAGER ANAEROBIC CULTURE Routine 04/21/2018 1:20 PM NATURAL RESOURCE MANAGER GRAM STAIN Routine 04/21/2018 1:20 PM NATURAL RESOURCE MANAGER AEROBIC CULTURE Routine 04/21/2018 1:20 PM NATURAL RESOURCE MANAGER XR ANKLE 2 VW LEFT Routine 04/21/2018 1:04 PM NATURAL RESOURCE MANAGER POC GLUCOSE Routine 04/21/2018 12:11 PM NATURAL RESOURCE MANAGER LACTIC ACID LEVEL, SEPSIS Timed 04/21/2018 10:26 AM NATURAL RESOURCE MANAGER Results for this - NOW AND REPEAT 2X EVERY procedure are in the 3 HOURS results section. POC GLUCOSE Routine 04/21/2018 8:36 AM NATURAL RESOURCE MANAGER SURGICAL PATHOLOGY REQUEST Routine 04/21/2018 8:12 AM NATURAL RESOURCE MANAGER LACTIC ACID LEVEL, SEPSIS Timed 04/21/2018 7:35 AM NATURAL RESOURCE MANAGER Results for this - NOW AND REPEAT 2X EVERY procedure are in the 3 HOURS results section. CONSULT TO OSTOMY CARE Routine 04/21/2018 7:31 AM NATURAL RESOURCE MANAGER NURSE ESTIMATED GFR Routine 04/21/2018 4:15 AM NATURAL RESOURCE MANAGER LACTIC ACID LEVEL, SEPSIS Timed 04/21/2018 4:15 AM NATURAL RESOURCE MANAGER Results for this - NOW AND REPEAT 2X EVERY procedure are in the 3 HOURS results section. MAGNESIUM LEVEL Routine 04/21/2018 4:15 AM NATURAL RESOURCE MANAGER BASIC METABOLIC PANEL Routine 04/21/2018 4:15 AM NATURAL RESOURCE MANAGER HC COMPLETE BLD COUNT Routine 04/21/2018 4:15 AM NATURAL RESOURCE MANAGER Results for this W/AUTO DIFF procedure are in the results section. after 10/31/2017 Results POC glucose (04/30/2018 9:25 PM NATURAL RESOURCE MANAGER)Only the most recent of47 resultswithin the time period is included. [facility] P[facility] glucose 137 (H) 65 - 99 mg/dL [facility] Comment: [facility] RN Notified Meter ID: [id number] Prototype Carpenter: Burak Patrick Specimen Performing Organization Address [facility] Phone Number [facility] DEPARTMENT OF PATHOLOGY [address] [place] [address] Estimated GFR (04/29/2018 6:40 AM NATURAL RESOURCE MANAGER)Only the most recent of8 resultswithin the time period is included. [facility] Estimated GFR 89 mL/min/1.73 [facility] Comment: m2 [facility] G1 >=90 Normal or high G2 60-89Mildly decreased [id number] to moderately decreased [id number] to severely decreased G4 15-29Severely decreased G5 <15Kidney failure The eGFR was calculated using the Chronic Kidney Disease Epidemiology Collaboration (CKD-EPI) equation. Interpretation is based on recommendations of the National Kidney Foundation-Kidney Disease Outcomes Quality Initiative (NKF-KDOQI) published in 2014. Specimen Plasma specimen Performing Organization Address City/[facility]/Zipcode Phone Number [facility] DEPARTMENT OF PATHOLOGY [address] [place] [address] CBC with platelet and differential (04/29/2018 6:40 AM NATURAL RESOURCE MANAGER)Only the most recent of9 resultswithin the time period is included. [facility] WBC 7.1 4.5 - 11.0 k/uL [facility] RBC 3.51 (L) 4.40 - 6.00 [facility] m/uL [facility] HGB 9.4 (L) 14.0 - 18.0 [facility] g/dL [facility] HCT 29.2 (L) 41.0 - 51.0 % [facility] MCV 83.2 82.0 - 100.0 fL [facility] MCH 26.8 (L) 27.0 - 34.0 pg [facility] MCHC 32.2 31.0 - 37.0 [facility] g/dL [facility] RDW - SD 47.1 37.0 - 55.0 fL [facility] MPV 8.9 6.9 - 11.0 fL [facility] Platelet count 401 (H) 150 - 400 K/uL [facility] Nucleated RBC 0.00 /100 WBC [facility] Neutrophils 73.2 (H) 39.0 - 69.0 % [facility] Lymphocytes 14.0 (L) 25.0 - 45.0 % [facility] Monocytes 8.6 0.0 - 10.0 % [facility] Eosinophils 3.1 0.0 - 5.0 % [facility] Basophils 0.7 0.0 - 1.0 % [facility] Immature granulocytes 0.4 0.0 - 1.0 % [facility] Specimen Blood Performing Organization Address City/State/Zipcode Phone Number [facility] DEPARTMENT OF PATHOLOGY [address] [place] [address] AND GENOMIC MEDICINE [facility] [address] [place] [address] HOSPITAL Basic metabolic panel (04/29/2018 6:40 AM NATURAL RESOURCE MANAGER)Only the most recent of5 resultswithin the time period is included. Sodium 135 135 - 148 mEq/L [facility] Potassium 4.3 3.5 - 5.0 mEq/L [facility] Chloride 101 98 - 112 mEq/L [facility] CO2 22 (L) 24 - 31 mEq/L [facility] Anion gap 12@ANIO 7 - 15 mEq/L [facility] HOSPITAL BUN 12 8 - 23 mg/dL [facility] Creatinine 0.95 0.70 - 1.20 mg/dL [facility] Glucose 164 (H) 65 - 99 mg/dL [facility] Calcium 8.3 (L) 8.8 - 10.2 mg/dL [facility] Specimen Plasma specimen Performing Organization Address City/[facility] Phone Number [facility] DEPARTMENT OF PATHOLOGY [address] [place] [address] Transfuse RBC (04/29/2018 6:26 AM NATURAL RESOURCE MANAGER)Only the most recent of2 resultswithin the time period is included.Prepare RBC, 1 Units (04/29/2018 12:29 AM NATURAL RESOURCE MANAGER)Only the most recent of2 resultswithin the time period is included. Product name Red Blood Cells [facility] -1, Leukored [facility] Unit number [id number] [facility] Product code [id number] [facility] Dispense status Transfused [facility] Blood expiration [id number] [facility] Blood type code 5100 [facility] Blood type O POSITIVE [facility] Specimen Performing Organization Address [facility] Phone Number [facility] DEPARTMENT OF PATHOLOGY [address] [place] [address] [place] [address] HOSPITAL Type and screen (04/29/2018 12:29 AM NATURAL RESOURCE MANAGER)Only the most recent of2 resultswithin the time period is included. ABO grouping O [facility] Rh type POS [facility] Antibody screen (gel) NEG [facility] Specimen Blood Performing Organization Address City/[facility] Phone Number [facility] DEPARTMENT OF PATHOLOGY [address] [place] [address] Vancomycin level, trough (04/27/2018 8:55 PM NATURAL RESOURCE MANAGER)Only the most recent of3 resultswithin the time period is included. Vancomycin, 10.9 10.0 - 20.0 [facility] trough Comment: ug/mL [facility] Therapeutic Ranges: HOSPITAL Peak30.0 - 40.0 ug/mL Rtscek61.0 - 20.0 ug/mL Specimen Blood Performing Organization Address City/State/Zipcode Phone Number [facility] DEPARTMENT OF PATHOLOGY [address] [place] [address] AND [facility] [address] Comprehensive metabolic panel (04/26/2018 4:50 AM NATURAL RESOURCE MANAGER)Only the most recent of3 resultswithin the time period is included. Sodium 131 (L) 135 - 148 mEq/L [facility] Potassium 4.6 3.5 - 5.0 mEq/L [facility] Chloride 98 98 - 112 mEq/L [facility] CO2 24 24 - 31 mEq/L [facility] Anion gap 9@ANIO 7 - 15 mEq/L [facility] BUN 11 8 - 23 mg/dL [facility] Creatinine 1.01 0.70 - 1.20 [facility] mg/dL [facility] Glucose 176 (H) 65 - 99 mg/dL [facility] Calcium 8.3 (L) 8.8 - 10.2 mg/dL [facility] Protein 7.4 6.3 - 8.3 g/dL [facility] Albumin 2.2 (L) 3.5 - 5.0 g/dL [facility] A/G ratio 0.4 (L) 0.7 - 3.8 [facility] Alkaline phosphatase 67 40 - 129 U/L [facility] AST 38 10 - 50 U/L [facility] ALT 13 5 - 50 U/L [facility] Total bilirubin 0.4 0.2 - 1.2 mg/dL [facility] Specimen Plasma specimen Performing Organization Address City/[facility]/Zipcode Phone Number [facility] DEPARTMENT OF PATHOLOGY [address] [place] [address] AND [facility] [address] [place] [address] HOSPITAL Surgical pathology request (04/25/2018 10:54 AM NATURAL RESOURCE MANAGER)Only the most recent of2 resultswithin the time period is included. [facility] DEPARTMENT OF PATHOLOGY AND GENOMIC MEDICINE Surgical pathology See link below [facility] DEPARTMENT OF report for PDF Lab PATHOLOGY AND Report GENOMIC MEDICINE Result status This is Final [facility] DEPARTMENT OF Report for PATHOLOGY AND [id number] [facility] Specimen Performing Organization Address City/State/Zipcode Phone Number [facility] DEPARTMENT OF PATHOLOGY [address] [place] [address] AND [facility] MEDICINE Manual differential (04/25/2018 4:15 AM NATURAL RESOURCE MANAGER) Manual differential PERFORMED [facility] Neutrophils 81.0 (H) 39.0 - 69.0 % [facility] Lymphocytes 12.0 (L) 25.0 - 45.0 % [facility] Monocytes 4.0 0.0 - 10.0 % [facility] Eosinophils 2.0 0.0 - 5.0 % [facility] Basophils 1.0 0.0 - 1.0 % [facility] Platelet slide review Ryan slt incr [facility] Toxic granulation Moderate (A) [facility] Neutrophils, Moderate (A) [facility] vacuolated [facility] Anisocytosis Moderate [facility] Polychromasia Moderate [facility] Ovalocytes Moderate [facility] Stout cells Moderate (A) [facility] Enlarged platelets Moderate (A) [facility] Giant platelets Occasional [facility] Specimen Performing Organization Address City/[facility]/Zipcode Phone Number [facility] DEPARTMENT OF PATHOLOGY [address] [place] [address] AND GENOMIC MEDICINE [facility] [address] [place] [address] HOSPITAL Prothrombin time with INR (04/25/2018 4:15 AM NATURAL RESOURCE MANAGER)Only the most recent of3 resultswithin the time period is included. Prothrombin time 14.9 (H) 11.5 - 14.5 [facility] INR 1.2 [place] Comment: [facility] International Normalized Ratio (INR) is a therapeutic [facility] monitoring tool for patients who are stable on oral anticoagulant therapy. An INR of 2.0-3.0 is suggested for deep vein thrombosis/pulmonary embolism. Specimen Blood Performing Organization Address City/State/Zipcode Phone Number [facility] DEPARTMENT OF PATHOLOGY [id number] [place] [address] AND [facility] [id number] [place] [address] HOSPITAL Phosphorus level (04/25/2018 4:15 AM NATURAL RESOURCE MANAGER)Only the most recent of3 resultswithin the time period is included. Phosphorus 3.0 2.4 - 4.5 mg/dL [facility] Specimen Plasma specimen Performing Organization Address [facility] Phone Number [facility] DEPARTMENT OF PATHOLOGY [address] [place] [address] [place] [address] HOSPITAL Magnesium level (04/25/2018 4:15 AM NATURAL RESOURCE MANAGER)Only the most recent of4 resultswithin the time period is included. Magnesium 1.9 1.6 - 2.4 mg/dL [facility] Specimen Plasma specimen Performing Organization Address [facility] Phone Number [facility] DEPARTMENT OF PATHOLOGY [address] [place] [address] [place] [address] HOSPITAL Pv duplex arterial lower extremity (04/22/2018 3:27 PM NATURAL RESOURCE MANAGER) Specimen Narrative Performed At [facility] EXAM: Right lower extremity arterial Doppler HISTORY: Claudication TECHNIQUE: Real-time as well as pulsed and color Doppler evaluation of right common femoral, femoral, popliteal, posterior tibial, anterior tibial, and dorsalis pedis arteries are evaluated. The examination includes a full duplex Doppler scan of the blood vessels (real-time P mode grayscale, Doppler spectral analysis, and Doppler color flow imaging). IMPRESSION: The right lower extremity arterial vasculature is of normal course, caliber, and contour without aneurysmal dilatation or focal dissection. Diffuse vascular calcifications are seen. 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 PEAK SYSTOLIC VELOCITIES: RIGHT LEG: COMMON FEMORAL:125 cm/s FEMORAL: Proximal: 65 cm/s Mid: 54 cm/s Distal:1 36 cm/s POPLITEAL: Proximal: 69 cm/s Mid: 95 cm/s Distal:8 1 cm/s POSTERIOR TIBIAL: Proximal: 44 cm/s Mid: 52 cm/s Distal:4 7 cm/s ANTERIOR TIBIAL: Proximal: 0 cm/s Mid: 0 cm/s Distal:2 2 cm/s DORSALIS PEDIS: 52 cm/s ABIs: Right DP: Right PT: [id number] Procedure Note Hm Interface, Radiology Results Incoming - 04/22/2018 3:35 PM NATURAL RESOURCE MANAGER EXAM: Right lower extremity arterial Doppler HISTORY: Claudication TECHNIQUE: Real-time as well as pulsed and color Doppler evaluation of right common femoral, femoral, popliteal, posterior tibial, anterior tibial, and dorsalis pedis arteries are evaluated. The examination includes a full duplex Doppler scan of the blood vessels (real-time P mode grayscale, Doppler spectral analysis, and Doppler color flow imaging). IMPRESSION: The right lower extremity arterial vasculature is of normal course, caliber, and contour without aneurysmal dilatation or focal dissection. Diffuse vascular calcifications are seen. 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 PEAK SYSTOLIC VELOCITIES: RIGHT LEG: COMMON FEMORAL: 125 cm/s FEMORAL: Proximal: 65 cm/s Mid: 54 cm/s Distal: 136 cm/s POPLITEAL: Proximal: 69 cm/s Mid: 95 cm/s Distal: 81 cm/s POSTERIOR TIBIAL: Proximal: 44 cm/s Mid: 52 cm/s Distal: 47 cm/s ANTERIOR TIBIAL: Proximal: 0 cm/s Mid: 0 cm/s Distal: 22 cm/s DORSALIS PEDIS: 52 cm/s ABIs: Right DP: Right PT: [id number] Performing Organization Address City/State/Zipcode Phone Number [facility] [address] [place] [address] Echocardiogram complete w contrast and 3D if needed (04/22/2018 11:00 AM NATURAL RESOURCE MANAGER) Ao Root Diameter 4.03 cm [facility] AoV Area, Vmax 2.77 cm2 [facility] AoV Area, VTI 2.83 cm2 [facility] AoV Mean PG 5.69 mmHg [facility] AoV Peak PG 8.69 mmHg [facility] AoV Vmax 1.47 m/s [facility] AoV VTI 0.25 m [facility] IVS,d 1.02 cm [facility] IVS/LVPW,2D 0.82 [facility] Left Atrium Dimension Anterior 3.32 cm [facility] LA Area d A4C 25.98 cm2 [facility] LV,d 5.04 cm [facility] LV EF,2D 35.58 % [facility] LV,s 4.35 cm [facility] LVOT area 4.48 cm2 [facility] LVOT Diam,S 2.39 cm [facility] LVOT Vmax 0.91 m/s [facility] LVOT VTI 0.16 m [facility] LVPWD,d 1.25 cm [facility] RVSP (TR) 40.41 mmHg [facility] TR Vpeak 2.86 mm/s [facility] MV E A ratio 0.90 [facility] TR pk grad 32.41 mmHg [facility] E wave decelartion time 165.92 msec [facility] MV Peak A Marquez 0.95 m/s [facility] MV valve area p 1/2 method 4.90 cm2 [facility] MV Peak E Marquez 1.07 m/s [facility] MV stenosis pressure 1/2 time 44.93 ms [facility] AV LVOT peak gradient 3.31 mmHg [facility] RVSP 40.41 mmHg [facility] Ao Root Diameter 4.03 cm [facility] MV mean gradient 3.32 mmHg [facility] LV SYS VOL 85.49 ml [facility] LV RHOADES VOL 120.46 ml [facility] LV SV Teich 2D 34.96 ml [facility] LV Vol s Teich PSAX 85.49 ml [facility] MR peak grad 7.72 mmHg [facility] MV Vmax 1.39 m [facility] MV VTI Tips 0.29 m [facility] AoV Vmn 1.16 [facility] LV FS Teich 2D 13.64 [facility] MV AE ratio 1.12 [facility] LA Ao Ratio Mmode 0.92 [facility] LV FS Cube 2D 13.64 [facility] LVOT Vmn 0.65 [facility] Ao root annulus 4.06 cm [facility] Aov area Vmn 2.53 cm2 [facility] LA Vol d MOD A4C 93.36 ml [facility] LVOT mean grad 1.84 mmHg [facility] MAX Pred HR 142.88 [facility] 85 of MPHR 121.45 [facility] Calc MPHR 142.88 bpm [facility] LV SV Cube 2D 45.56 ml [facility] LV vol d cube 2D 128.03 ml [facility] LV vol s cube 2D 82.47 ml [facility] MV Decel slope 6.42 m/s2 [facility] Pred Exer Dur R1 6.08 [facility] Pred METS R1 6.43 [facility] Velocity Ratio (V1/V2) 0.62 m/s [facility] EF 29.03 % [facility] E/A ratio 1.13 [facility] RA pressure 8.00 mmHg [facility] Specimen Narrative Performed At [facility] Left ventricular systolic function is moderately impaired. Left Ventricular ejection fraction is 30 - 35%. There is pericardial effusion. There is mild dilatation of the aortic root. The jet in the mitral valve is posterior-directed. Mild pulmonary hypertension present. Spectral Doppler shows impaired relaxation pattern of left ventricular diastolic filling. Stage I diastolic dysfunction. Normal let ventricular size with moderately reduced systolic function and stage I diastolic dysfunction. Mild mitral and trace tricuspid regurgitation. Mild aortic root dilatation. Normal right sided chambers. Mild pulmonary hypertension. Small pericardial effusion without evidence of tamponade. Performing Organization Address City/State/Zipcode Phone Number [facility] [address] [place] [address] Partial thromboplastin time, activated (04/22/2018 4:48 AM NATURAL RESOURCE MANAGER)Only the most recent of2 resultswithin the time period is included. PTT 39.9 (H) 23.0 - 36.0 [facility] Comment: sec [facility] PTT therapeutic range for unfractionated heparin is HOSPITAL 61.0-112.0 seconds which corresponds to Anti-Xa 0.3-0.7 U/ml. Specimen Blood Performing Organization Address City/State/Zipcode Phone Number [facility] DEPARTMENT OF PATHOLOGY [address] [place] [address] AND GENOMIC MEDICINE [facility] [address] Lactic acid level (04/22/2018 4:48 AM NATURAL RESOURCE MANAGER)Only the most recent of2 resultswithin the time period is included. Lactic acid 1.1 0.5 - 2.2 mmol/L [facility] Specimen Plasma specimen Performing Organization Address City/[facility]/Zipcode Phone Number [facility] DEPARTMENT OF PATHOLOGY [address] [place] [address] AND [facility] [id number] [place] [address] Ionized calcium (04/22/2018 4:48 AM NATURAL RESOURCE MANAGER) pH 7.43 [facility] Ionized calcium 1.11 1.11 - 1.32 mmol/L [facility] Specimen Plasma specimen Performing Organization Address [facility] Phone Number [facility] DEPARTMENT OF PATHOLOGY [address] [place] [address] AND [facility] [id number] [place] [address] CT Head Wo Contrast (04/21/2018 11:18 PM NATURAL RESOURCE MANAGER) Specimen Narrative Performed At EXAMINATION: CT HEAD WO CONTRAST [facility] CLINICAL HISTORY: Pre-op AMS COMPARISON:None. TECHNIQUE: Noncontrast enhanced images of the brain were obtained from the skull base to the vertex. Both soft tissue and bone reconstruction algorithms were performed. CT scans are performed using radiation dose reduction techniques (iterative reconstruction and/or automated exposure control). Technical factors are evaluated and adjusted to ensure appropriate moderation of exposure. Automated dose management technology is applied to adjust radiation exposure while achieving a diagnostic quality image. FINDINGS: Mild generalized brain parenchymal volume loss. Nonspecific hypoattenuation of the supratentorial white matter, likely chronic microangiopathic changes. Mild cerebrovascular calcifications. The brain parenchyma is otherwise unremarkable. The torrez-white matter differentiation is preserved. No evidence of acute intra or extra-axial hemorrhage, mass, mass effect or acute territorial infarction. There is no acute hydrocephalus. Basal cisterns are patent. No acute soft tissue hematoma or laceration. No skull fractures or aggressive bony lesions. Paranasal sinuses and mastoid air cells are clear. Orbits are normal. IMPRESSION: No acute intracranial abnormality identified. [facility]-[id number] Procedure Note Interface, Radiology Results Incoming - 04/21/2018 11:25 PM NATURAL RESOURCE MANAGER EXAMINATION: CT HEAD WO CONTRAST CLINICAL HISTORY: Pre-op AMS COMPARISON: None. TECHNIQUE: Noncontrast enhanced images of the brain were obtained from the skull base to the vertex. Both soft tissue and bone reconstruction algorithms were performed. CT scans are performed using radiation dose reduction techniques (iterative reconstruction and/or automated exposure control). Technical factors are evaluated and adjusted to ensure appropriate moderation of exposure. Automated dose management technology is applied to adjust radiation exposure while achieving a diagnostic quality image. FINDINGS: Mild generalized brain parenchymal volume loss. Nonspecific hypoattenuation of the supratentorial white matter, likely chronic microangiopathic changes. Mild cerebrovascular calcifications. The brain parenchyma is otherwise unremarkable. The torrez-white matter differentiation is preserved. No evidence of acute intra or extra-axial hemorrhage, mass, mass effect or acute territorial infarction. There is no acute hydrocephalus. Basal cisterns are patent. No acute soft tissue hematoma or laceration. No skull fractures or aggressive bony lesions. Paranasal sinuses and mastoid air cells are clear. Orbits are normal. IMPRESSION: No acute intracranial abnormality identified. [facility]-[id number] Performing Organization Address [facility]/Zipcode Phone Number [facility] [address] [place] [address] ECG 12 lead (04/21/2018 10:56 PM NATURAL RESOURCE MANAGER) Ventricular rate 83 [facility] Atrial rate 83 [facility] [place] interval 146 [facility] QRSD interval 84 [facility] QT interval 476 [facility] QTC interval 559 [facility] P axis 1 54 [facility] QRS axis 1 4 [facility] T wave axis 85 [facility] EKG impression Normal sinus [facility] rhythm-Prolonged QT-Abnormal ECG-No previous ECGs available-Electronicall y Signed By Dwight Mast MD (2024) on 04/22/2018 5:59:11 PM Specimen Narrative Performed At Performing Organization Address City/[facility] Phone Number [facility] [address] [place] [address] Ionized calcium, arterial (04/21/2018 10:48 PM NATURAL RESOURCE MANAGER) Ionized calcium, 1.17 1.11 - 1.32 [facility] arterial mmol/L [facility] Specimen Blood Performing Organization Address City/[facility]/Zipcode Phone Number [facility] DEPARTMENT OF PATHOLOGY [address] [place] [address] AND GENOMIC MEDICINE [facility] [address] Arterial blood gas (04/21/2018 10:48 PM NATURAL RESOURCE MANAGER) pH, arterial 7.42 7.35 - 7.45 [facility] pCO2, arterial 42 35 - 45 mmHg [facility] pO2, arterial 280 (H) 80 - 90 mmHg [facility] Bicarbonate, 26.6 21.0 - 28.0 [facility] arterial mmol/L [facility] Base excess, 3 (H) -2 - 2 mEq/L [facility] O2 saturation, 99 95 - 100 % [facility] Specimen Blood Performing Organization Address City/[facility]/Zipcode Phone Number [facility] DEPARTMENT OF PATHOLOGY [address] [place] [address] AND GENOMIC MEDICINE [facility] [address] [place] [address] HOSPITAL XR Chest 1 Vw Portable (04/21/2018 10:47 PM NATURAL RESOURCE MANAGER) Specimen Narrative Performed At EXAMINATION:XR CHEST 1 VW PORTABLE [facility] CLINICAL HISTORY:post-op COMPARISON:None IMPRESSION: Moderate enlargement of cardiac silhouette. Mild vascular congestion. No effusions or pneumothorax. No acute osseous abnormalities. [facility]-[id number] Procedure Note Hm Interface, Radiology Results Incoming - 04/21/2018 11:24 PM NATURAL RESOURCE MANAGER EXAMINATION: XR CHEST 1 VW PORTABLE CLINICAL HISTORY: post-op COMPARISON: None IMPRESSION: Moderate enlargement of cardiac silhouette. Mild vascular congestion. No effusions or pneumothorax. No acute osseous abnormalities. [facility]-[id number] Performing Organization Address [facility]/Zipcode Phone Number [facility] [address] [place] [address] Urinalysis screen and microscopy, with reflex to culture (04/21/2018 10:45 PM NATURAL RESOURCE MANAGER) Specimen site Catheterized [facility] Color, UA Dark Yellow [facility] Appearance, UA Sl Cloudy [facility] Specific gravity, UA 1.027 1.001 - 1.030 [facility] pH, UA 5.0 5.0 - 9.0 [facility] Protein, UA Negative Negative [facility] Glucose, UA 3+ (A) Negative [facility] Ketones, UA Negative Negative [facility] Bilirubin, UA Negative Negative [facility] Blood, UA Small (A) Negative [facility] Nitrite, UA Negative Negative [facility] Urobilinogen, UA 4.0 (A) <2.0 E.U./dL [facility] Leukocyte esterase, Large (A) Negative [facility] Epithelial cells, UA <1 /HPF [facility] Round epithelial <1 0 - 5 /HPF [facility] cells, UA [facility] WBC, UA 39 (H) 0 - 1 /HPF [facility] RBC, UA 4 0 - 5 /HPF [facility] Bacteria, UA Many (A) None seen [facility] Yeast, UA None seen [facility] Yeast with None seen [facility] pseudohyphae, UA [facility] Specimen Urine Performing Organization Address City/[facility]/Zipcode Phone Number [facility] DEPARTMENT OF PATHOLOGY [address] [place] [address] AND [facility] [id number] [place] [address] HOSPITAL Gram stain (04/21/2018 10:30 PM NATURAL RESOURCE MANAGER)Only the most recent of2 resultswithin the time period is included. Gram stain result Rare WBC's [facility] No organisms seen HOSPITAL Comment: Specimen Information Specimen Source: Urine Specimen Site: Catheterized Specimen Urine - Catheterized Performing Organization Address City/[facility] Phone Number [facility] DEPARTMENT OF PATHOLOGY AND [address] [place] [id number] [place] [phone] Urine culture (04/21/2018 10:30 PM NATURAL RESOURCE MANAGER) Urine culture No growth after 24 hours [facility] isolate Comment: HOSPITAL Specimen Information Specimen Source: Urine Specimen Site: Catheterized Specimen Urine - Catheterized Performing Organization Address City/[facility]/Zipcode Phone Number [facility] DEPARTMENT OF PATHOLOGY AND [address] [place] [address] ECG Pre/Post Op (04/21/2018 7:39 PM NATURAL RESOURCE MANAGER) Ventricular rate 90 [facility] Atrial rate 90 [facility] [place] interval 138 [facility] QRSD interval 88 [facility] QT interval 452 [facility] QTC interval 552 [facility] MUSE P axis 1 59 [facility] QRS axis 1 3 [facility] T wave axis 65 [facility] EKG impression Sinus rhythm with [facility] MUSE occasional premature ventricular complexes-Otherwise normal ECG-- Specimen Narrative Performed At Performing Organization Address City/[facility] Phone Number [address] [address] Blood culture, aerobic & anaerobic (04/21/2018 4:50 PM NATURAL RESOURCE MANAGER)Only the most recent of2 resultswithin the time period is included. Blood culture No growth after 5 days of incubation. [facility] Comment: HOSPITAL Specimen Information Specimen Source: Blood Specimen Site: Antecubital, left Specimen Blood - Antecubital, left Performing Organization Address City/[facility] Phone Number [facility] DEPARTMENT OF PATHOLOGY AND [address] [place] [phone] GENOMIC MEDICINE [address] [address] Aerobic culture (04/21/2018 1:20 PM NATURAL RESOURCE MANAGER) Aerobic culture Klebsiella aerogenes [facility] The performance characteristics of this assay on this isolate were validated by the Microbiology Laboratory at [facility].This source has not been approved by the U.. Food and Drug Administration.The results are not intended to be used as the sole means for clinical diagnosis or patient management.The Microbiology Laboratory is authorized under the clinical Laboratory Improvement Amendments of 1988 (CLIA-88) to perform high complexity testing. The performance characteristics of this assay on this isolate were validated by the Microbiology Laboratory at [facility].This source has not been approved by the U.S. Food and Drug Administration.The results are not intended to be used as the sole means for clinical diagnosis or patient management.The Microbiology Laboratory is authorized under the clinical Laboratory Improvement Amendments of 1988 (CLIA-88) to perform high complexity testing. (A) Comment: Specimen Information Specimen Source: Ulcer Specimen Site: Ankle Aerobic culture Staphylococcus aureus [facility] This organism is Methicillin Sensitive. (A) Aerobic culture Streptococcus group F [facility] The performance characteristics of this assay on this isolate were validated by the Microbiology Laboratory at [facility].This source has not been approved by the U.S. Food and Drug Administration.The results are not intended to be used as the sole means for clinical diagnosis or patient management.The Microbiology Laboratory is authorized under the clinical Laboratory Improvement Amendments of 1988 (CLIA-88) to perform high complexity testing. (A) Specimen Ulcer - Ankle Organism Antibiotic Method Susceptibility Klebsiella aerogenes Ampicillin MAUDE >16 mcg/mL: Resistant Klebsiella aerogenes Amoxicillin/Clavulanate MAUDE >16/8 mcg/mL: Resistant Klebsiella aerogenes Amikacin MAUDE <=4 mcg/mL: Susceptible Klebsiella aerogenes Aztreonam MAUDE <=1 mcg/mL: Susceptible Klebsiella aerogenes Ceftazidime MAUDE <=0.5 mcg/mL: Susceptible Klebsiella aerogenes Ciprofloxacin MAUDE <=0.5 mcg/mL: Susceptible Klebsiella aerogenes Ceftriaxone MAUDE <=0.5 mcg/mL: Susceptible Klebsiella aerogenes Cefuroxime Sodium MAUDE >16 mcg/mL: Resistant Klebsiella aerogenes Cefazolin MAUDE >32 mcg/mL: Resistant Klebsiella aerogenes Cefepime MAUDE <=0.5 mcg/mL: Susceptible Klebsiella aerogenes Cefoxitin MAUDE >16 mcg/mL: Resistant Klebsiella aerogenes Gentamicin MAUDE 1 mcg/mL: Susceptible Klebsiella aerogenes Levofloxacin MAUDE <=1 mcg/mL: Susceptible Klebsiella aerogenes Meropenem MAUDE <=0.125 mcg/mL: Susceptible Klebsiella aerogenes Tobramycin MAUDE 1 mcg/mL: Susceptible Klebsiella aerogenes Ampicillin/Sulbactam MAUDE >16/8 mcg/mL: Resistant Klebsiella aerogenes Trimethoprim/Sulfamethoxazol MAUDE <=0.5/9.5 mcg/mL: e Susceptible Klebsiella aerogenes Tetracycline MAUDE <=1 mcg/mL: Susceptible Klebsiella aerogenes Piperacillin/Tazobactam MAUDE 8/4 mcg/mL: Susceptible Klebsiella aerogenes Ertapenem MAUDE <=0.125 mcg/mL: Susceptible Klebsiella aerogenes Tigecycline MAUDE <=0.5 mcg/mL: Susceptible Staphylococcus aureus Ampicillin MAUDE mcg/mL: Resistant Staphylococcus aureus Clindamycin MAUDE <=0.5 mcg/mL: Susceptible Staphylococcus aureus Erythromycin MAUDE >4 mcg/mL: Resistant Staphylococcus aureus Linezolid MAUDE 2 mcg/mL: Susceptible Staphylococcus aureus Minocycline MAUDE <=1 mcg/mL: Susceptible Staphylococcus aureus Oxacillin MAUDE 0.5 mcg/mL: Susceptible Staphylococcus aureus Penicillin G MAUDE >1 mcg/mL: Resistant Staphylococcus aureus Rifampin MAUDE <=0.5 mcg/mL: Susceptible Staphylococcus aureus Trimethoprim/Sulfamethoxazol MAUDE <=0.5/9.5 mcg/mL: e Susceptible Staphylococcus aureus Tetracycline MAUDE <=0.5 mcg/mL: Susceptible Staphylococcus aureus Vancomycin MAUDE 1 mcg/mL: Susceptible Performing Organization Address City/[facility]/Zipcode Phone Number [facility] DEPARTMENT OF PATHOLOGY AND [address] [place] [phone] [address] Anaerobic culture (04/21/2018 1:20 PM NATURAL RESOURCE MANAGER) Anaerobic culture Parvimonas micra (A) [facility] isolate Comment: HOSPITAL Specimen Information Specimen Source: Ulcer Specimen Site: Ankle Specimen Ulcer - Ankle Performing Organization Address [facility] Phone Number [facility] DEPARTMENT OF PATHOLOGY AND [address] [place] [phone] [address] XR Ankle 2 Vw Left (04/21/2018 1:04 PM NATURAL RESOURCE MANAGER) Specimen Addenda Addendum by Cristóbal Hackett MD on 04/21/2018 6:53 PM ADDENDUM #1 There is a typographical error in the report. The images obtained were of the left ankle. Narrative Performed At EXAMINATION:XR ANKLE 2 VW LEFT [facility] CLINICAL HISTORY:osteo COMPARISON:None. IMPRESSION: There is subcutaneous emphysema along the anterior and anterolateral medial aspect of the right ankle and lower leg. There is no evidence of fracture or dislocation. No focal bony erosion is identified. Prominent plantar calcaneal exostosis is noted. [facility]-[id number] Procedure Note Interface, Radiology Results Incoming - 04/21/2018 1:58 PM NATURAL RESOURCE MANAGER EXAMINATION: XR ANKLE 2 VW LEFT CLINICAL HISTORY: osteo COMPARISON: None. IMPRESSION: There is subcutaneous emphysema along the anterior and anterolateral medial aspect of the right ankle and lower leg. There is no evidence of fracture or dislocation. No focal bony erosion is identified. Prominent plantar calcaneal exostosis is noted. [facility]-[id number] Performing Organization Address [facility] Phone Number [facility] [address] [place] [phone] Lactic acid level, SEPSIS - Now and repeat 2x every 3 hours (04/21/2018 10:26 AM NATURAL RESOURCE MANAGER)Only the most recent of3 resultswithin the time period is included. Lactic acid 1.5 0.5 - 2.2 mmol/L [facility] Specimen Plasma specimen Performing Organization Address City/State/Zipcode Phone Number [facility] DEPARTMENT OF PATHOLOGY [address] [place] [address] AND GENOMIC MEDICINE [facility] [address] [place] [address] HOSPITAL after 10/31/2017 Insurance Payer Benefit Plan / Subscriber ID Effective Dates Phone Address Type Group MEDICARE MEDICARE PART A xxxxxxxxxx 2006-Present [place], [place] Medicare Advance Directives Patient has advance care planning documents on file. For more information, please contact:[facility] Hospitalist[address] [place] [address]
--- OUTSIDE RECORDS SUMMARY | 2018-11-01 14:36 | XMS REPORT | Continuity of Care Document ---
:1940 Author Organization [facility] Address [address] [place] [address] Phone Unavailable Care Team Providers Name Role Phone NIKKIAMAYA LOWRY Primary Care Physician [id number] Insurance Providers Guarantor Jovany Elizondo Jr Address [address] [place] [address] Email NONE Payer Medicare Policy Number [id number] Subscriber's Name Jovany Elizondo Relationship Self / Same As Patient Group Number PART A ONLY Group Name NA Advance Directives Directive Response Recorded Date/Time Advance Directives No 09/26/14 4:59pm Advance Directive on File No 04/20/18 4:33pm Directive to Physicians/Living Will No 09/26/14 4:59pm Health Care Proxy No 09/26/14 4:59pm Organ Donor No 09/26/14 4:59pm Medical Power of [place] Molder No 09/26/14 4:59pm Patient/Family Given Education Material R/T Y - 04/20/18..AW 04/20/18 4: 33pm Directives? Chief Complaint and Reason for Visit Chief Complaint Skin Rash/Abscess/Wound Reason for Visit Type 2 diabetes mellitus with left diabetic foot infection Problems Medical Problem Onset Date Status Cellulitis Unknown Acute Diabetes mellitus Unknown Acute Diabetes mellitus Unknown Acute Diabetes mellitus Unknown Acute Dizziness Unknown Acute Hyperglycemia Unknown Acute Hypertension Unknown Acute Past Problems Medical Problem Onset Date Status Congestive heart failure Unknown Acute Laryngitis Unknown Acute Medication refill Unknown Acute Peripheral vascular disease of lower extremity Unknown Acute Type 2 diabetes mellitus with left diabetic foot infection Unknown Acute Medications Current Home Medications Medication Dose Units Route Directions Days Qty Instructions Start Date Aspirin (Geovany Low 81 Mg ORAL Once Daily Dose) 81 Mg Tab Metformin Hcl 500 Mg ORAL Twice A Day (Glucophage 500 Mg *) 500 Mg Tab Olmesartan (Benicar *) 40 Mg ORAL Daily 40 Mg Tab Past Home Medications Medication Directions Ordered Status Glyburide (Glyburide *) 2.5 Mg Tab, 2.5 Mg Oral Once Daily Discontinued Social History Social History Problem Response Recorded Date/Time Onset Date Status Hx Physical Abuse No 04/20/2018 4:33pm Not Applicable Not Applicable Smoking Status Start Date Stop Date Former smoker Hospital Discharge Instructions No hospital discharge instruction information available. Plan of Care Discharge Date 04/20/18 11:45pm Forms Provided Portal Welcome Letter Prescriptions See Medication Section Referrals AMAYA JORDAN Address: [address] [place] [phone] Functional Status No functional status information available. Allergies, Adverse Reactions, Alerts Allergen Type Severity Reaction Status Last Updated Hydrochlorothiazide Allergy Unknown SWELLING Active 12/16/13 ([id number]) LIP/TONGUE Lisinopril ([id number]) Allergy Unknown SWELLING Active 12/16/13 LIP/TONGUE Immunizations No immunization information available. Vital Signs Acute Vital Signs Vital Response Date/Time Blood Pressure 134/68 mm Hg 04/21/2018 3:07am Pulse Pulse Rate (adult) 95 beats per minute (60 - 100) 04/21/2018 3:07am Respiratory Rate 18 breaths per minute (10 - 24) 04/21/2018 3:07am Temperature Source Oral 04/21/2018 3:07am Height 6 ft 0 in 04/20/2018 4:33pm Weight 170 lb 04/20/2018 4:33pm Body Mass Index 23.1 kg/m^2 04/20/2018 4:33pm Results Laboratory Results Test Name Result Units Flags Reference Collection Result Comments Date/Time Date/Time Prothrombin Time 12.7 SECONDS H 10.3-12.3 04/09/2018 04/09/2018 2:35pm 2:53pm THERAPEUTIC LEVEL: 1.5 to 1.9 times normal range of PT Prothromb Time 1.16 04/09/2018 04/09/2018 International 2:35pm 2:53pm Recommended therapeutic range for patients receiving Ratio warfarin (coumadin) therapy: INR is 2.0 to 3.0 Recommended range for patients with mechanical prosthetic heart valves: INR is 2.5 to 3.5 Magnesium Level 1.8 mg/dL 1.6-2.4 04/09/2018 04/09/2018 2:35pm 3:00pm Lipase 10 U/L L 13-60 04/09/2018 04/09/2018 2:35pm 3:00pm JQ-Teh-D-Type 5039 pg/mL H 0-450 04/09/2018 04/09/2018 Natriuretic 2:35pm 3:11pm Peptide Thyroid 1.34 uIU/mL 0.36-3.74 04/09/2018 04/09/2018 Stimulating 2:35pm 3:11pm Hormone (TSH) Creatine Kinase 63 U/L 20-200 04/09/2018 04/09/2018 2:35pm 3:00pm Troponin I < 0.30 ng/mL 0.0-0.5 04/09/2018 04/09/2018 Published clinical studies have shown elevations of cTnI in 2:35pm 3:11pm patients with myocardial injury, as seen in unstable angina pectoris, cardiac contusions, and heart transplants. Elevations have also been seen in patients with rhabdomyolysis and polymyositis. Elevated troponin levels point to myocardial injury, but are not necessarily indicative of an ischemic mechanism. The term AR should be used when there is evidence of cardiac damage, as detected by marker proteins in a clinical setting consistent with myocardial ischemia. If the clinical circumstance suggests that an ischemic mechanism is unlikely, other causes of cardiac injury should be considered. For diagnostic purposes, the results should always be assessed in conjunction with the patient's medical history, clinical examination and other findings. Creatine Kinase MB 2.6 ng/ml 0.0-3.6 04/09/2018 04/09/2018 2:35pm 3:04pm DIAGNOSTIC CITERIA: CKMB CKMB RELATIVE INDEX SUGGESTIVE OF NON-AMI < or=5 N/A COVARRUBIAS ZONE (INCONCLUSIVE) > 5 < or=4 SUGGESTIVE OF AMI >5 > 4 White Blood Count 16.7 K/ul H 4.0-12.3 04/20/2018 04/20/2018 5:14pm 5:32pm Red Blood Count 4.13 M/ul 3.80-5.80 04/20/2018 04/20/2018 5:14pm 5:32pm Hemoglobin 11.1 g/dl L 11.67-17.2 04/20/2018 04/20/2018 2 5:14pm 5:32pm Hematocrit 34.8 % L 35.0-51.0 04/20/2018 04/20/2018 5:14pm 5:32pm Mean Corpuscular 84.3 fl 78-96 04/20/2018 04/20/2018 Volume 5:14pm 5:32pm Mean Corpuscular 26.9 pg 26.8-33.4 04/20/2018 04/20/2018 Hemoglobin 5:14pm 5:32pm Mean Corpuscular 31.9 g/dl L 32.3-36.7 04/20/2018 04/20/2018 Hemoglobin Concent 5:14pm 5:32pm Red Cell 14.2 % 11.6-15.4 04/20/2018 04/20/2018 Distribution Width 5:14pm 5:32pm Platelet Count 458 K/ul H 115-328 04/20/2018 04/20/2018 5:14pm 5:32pm Mean Platelet 5.7 fl L 8.4-11.8 04/20/2018 04/20/2018 Volume 5:14pm 5:32pm Neutrophils (%) 89.9 % H 44.7-82.4 04/20/2018 04/20/2018 (Auto) 5:14pm 5:32pm Lymphocytes (%) 4.3 % L 10.0-50.0 04/20/2018 04/20/2018 (Auto) 5:14pm 5:32pm Monocytes (%) 5.4 % 3.9-13.4 04/20/2018 04/20/2018 (Auto) 5:14pm 5:32pm Eosinophils (%) 0.1 % 0.0-6.43 04/20/2018 04/20/2018 (Auto) 5:14pm 5:32pm Basophils (%) 0.3 % 0.0-0.72 04/20/2018 04/20/2018 (Auto) 5:14pm 5:32pm POC Capillary 387 mg/dL H 70.0 - 110 04/20/2018 04/20/2018 Blood Glucose 4:42pm 6:28pm (Chem) Lactic Acid Level 2.18 mmoL/L 0.5-2.2 04/20/2018 04/20/2018 CALLED 5:15pm 5:49pm (WALLY);Broadcas melissa Critical RESULTS to (ER) By (C) Random Glucose 386 mg/dL H 82-115 04/20/2018 04/20/2018 5:14pm 5:50pm Blood Urea 16 mg/dL 8-23 04/20/2018 04/20/2018 Nitrogen 5:14pm 5:50pm Serum Osmolality 289 280-300 04/20/2018 04/20/2018 5:14pm 5:50pm Creatinine 1.0 mg/dL 0.70-1.20 04/20/2018 04/20/2018 5:14pm 5:50pm Glomerular > 60.00 04/20/2018 04/20/2018 GFR RESULTS ARE REPORTED IN mL/min/1.73m2. Filtration Rate 5:14pm 5:50pm Calc Normal GFR: >60mL/min Moderately decreased GFR: 30-59 mL/min Severely decreased GFR: 15-29 mL/min Kidney Failure (or Dialysis): <15 mL/min The calculated eGFR is not valid for patients younger than 18 years or older than 75 years. BUN/Creatinine 16.0 12-04/20/2018 04/20/2018 Ratio 5:14pm 5:50pm Sodium Level 136 mmol/L 135-145 04/20/2018 04/20/2018 5:14pm 5:50pm Potassium Level 4.6 mmol/L 3.5-5.2 04/20/2018 04/20/2018 5:14pm 5:50pm Chloride Level 97 mmol/L L 98-108 04/20/2018 04/20/2018 5:14pm 5:50pm Carbon Dioxide 27 mmol/L 21-32 04/20/2018 04/20/2018 Level 5:14pm 5:50pm Anion Gap 16.6 mEq/L 12-20 04/20/2018 04/20/2018 5:14pm 5:50pm Calcium Level 9.5 mg/dL 8.8-10.2 04/20/2018 04/20/2018 5:14pm 5:50pm Total Protein 9.3 g/dL H 6.6-8.7 04/20/2018 04/20/2018 5:14pm 5:50pm Albumin 3.1 g/dL L 3.5-5.2 04/20/2018 04/20/2018 5:14pm 5:50pm Globulin 6.2 gm/dL 04/20/2018 04/20/2018 5:14pm 5:50pm Albumin/Globulin 0.5 >1.0 04/20/2018 04/20/2018 Ratio 5:14pm 5:50pm Total Bilirubin 0.7 mg/dL 0.0-1.2 04/20/2018 04/20/2018 5:14pm 5:50pm Aspartate Amino 19 U/L 15-40 04/20/2018 04/20/2018 Transf (AST/SGOT) 5:14pm 5:50pm Alanine 8 U/L 0-41 04/20/2018 04/20/2018 Aminotransferase 5:14pm 5:50pm (ALT/SGPT) Total Alkaline 109 U/L 40-130 04/20/2018 04/20/2018 Phosphatase 5:14pm 5:50pm Microbiology Results Procedure Source Organism/Result Collection Result Result Status Date/Time Date/Time Blood Culture Blood SPECIMEN HAS BEEN 04/20/2018 04/20/2018 Preliminary RECEIVED IN LAB AND 5:14pm 5:20pm IS IN PROGRESS. Procedures Procedure Status Date Provider(s) EMERGENCY DEPT VISIT Completed 04/09/18 EXTREMITY STUDY Completed 04/09/18 UPR/LXTR ART STDY 3+ LVLS Completed 04/09/18 X-RAY EXAM CHEST 1 VIEW Completed 04/09/18 COMPLETE CBC W/AUTO DIFF WBC Completed 04/09/18 CREATINE MB FRACTION Completed 04/09/18 ASSAY OF CK (CPK) Completed 04/09/18 ASSAY OF LACTIC ACID Completed 04/09/18 ASSAY OF LACTIC ACID Completed 04/09/18 ASSAY OF LIPASE Completed 04/09/18 ASSAY OF MAGNESIUM Completed 04/09/18 PROTHROMBIN TIME Completed 04/09/18 ASSAY THYROID STIM HORMONE Completed 04/09/18 ROUTINE VENIPUNCTURE Completed 04/09/18 ASSAY OF TROPONIN QUANT Completed 04/09/18 COMPREHEN METABOLIC PANEL Completed 04/09/18 ASSAY OF NATRIURETIC PEPTIDE Completed 04/09/18 X-ray of chest, single view Completed 04/09/18 ALBINO SHEPHERD MD X-ray of chest, single view Completed 04/20/18 [facility] X-ray of left foot, three views Completed 04/20/18 [facility] X-ray of left tibia and fibula, two views Completed 04/20/18 [facility] Encounters Encounter Location Arrival/Admit Date Discharge/Depart Date Attending Provider Departed [place] 04/20/18 4:21pm 04/20/18 11:45pm ANNA BUNDY [facility] Departed [place] 04/09/18 12:29pm 04/09/18 6:09pm ALBINO SHEPHERD [facility] Recent Diagnosis
--- OUTSIDE RECORDS SUMMARY | 2018-11-01 14:36 | XMS REPORT | Continuity of Care Document ---
:1940 Author Organization [facility] Address [address] [place] [address] Phone Unavailable Care Team Providers Name Role Phone PHYSICIAN, NO Primary Care Physician Unavailable Insurance Providers Guarantor Jovany Elizondo Jr Address [address] [place] [address] Email NONE Payer Medicare Policy Number [id number] Subscriber's Name Jovany Elizondo Jr Relationship Self / Same As Patient Group Number PART A ONLY Group Name NA Advance Directives Directive Response Recorded Date/Time Advance Directives No 09/26/14 4:59pm Advance Directive on File No 04/09/18 1:12pm Directive to Physicians/Living Will No 09/26/14 4:59pm Health Care Proxy No 09/26/14 4:59pm Organ Donor No 09/26/14 4:59pm Medical Power of Sand Temperer No 09/26/14 4:59pm Patient/Family Given Education Material R/T Y - 04/09/18...[place] 04/09/18 1: 12pm Directives? Chief Complaint and Reason for Visit Chief Complaint Extremity Pain/Injury Reason for Visit Congestive heart failure Peripheral vascular disease of lower extremity Problems Medical Problem Onset Date Status Cellulitis Unknown Acute Diabetes mellitus Unknown Acute Diabetes mellitus Unknown Acute Diabetes mellitus Unknown Acute Dizziness Unknown Acute Hyperglycemia Unknown Acute Hypertension Unknown Acute Past Problems Medical Problem Onset Date Status Congestive heart failure Unknown Acute Laryngitis Unknown Acute Medication refill Unknown Acute Peripheral vascular disease of lower extremity Unknown Acute Medications Current Home Medications Medication [...] Onset Date Status Hx Physical Abuse No 04/09/2018 1:12pm Not Applicable Not Applicable Smoking Status Start Date Stop Date Former smoker Hospital Discharge Instructions No hospital discharge instruction information available. Plan of Care Discharge Date 04/09/18 6:09pm Disposition PATIENT DISCHARGE HOME OR SELF Instructions/Education Provided Peripheral Vascular Disease CHF Prescriptions See Medication Section Referrals NO PHYSICIAN Additional Instructions/Education Recommend that you take the Tylenol #3 as needed for pain, also take Lasix 40 mg every morning until seen by Dr. Multani. Follow up with him as soon as possible, or otherwise return to the ED if your condition worsens. Functional Status No functional status information available. Allergies, Adverse Reactions, Alerts Allergen Type Severity Reaction Status Last Updated Hydrochlorothiazide Allergy Unknown SWELLING Active 12/16/13 ([id number]) LIP/TONGUE Lisinopril ([id number]) Allergy Unknown SWELLING Active 12/16/13 LIP/TONGUE Immunizations No immunization information available. Vital Signs Acute Vital Signs Vital Response Date/Time Blood Pressure 144/89 mm Hg 04/09/2018 5:41pm Pulse Pulse Rate (adult) 102 beats per minute (60 - 100) 04/09/2018 5:41pm Respiratory Rate 19 breaths per minute (10 - 24) 04/09/2018 5:41pm Temperature Source Oral 04/09/2018 5:41pm Height 6 ft 0 in 04/09/2018 1:12pm Weight 175 lb 04/09/2018 1:12pm Body Mass Index 23.7 kg/m^2 04/09/2018 1:12pm Results Laboratory Results Test Name Result Units Flags Reference Collection Result Comments Date/Time Date/Time White Blood Count 12.0 K/ul 4.0-12.3 04/09/2018 04/09/2018 2:35pm 2:49pm Red Blood Count 3.84 M/ul 3.80-5.80 04/09/2018 04/09/2018 2:35pm 2:49pm Hemoglobin 10.3 g/dl L 11.67-17.2 04/09/2018 04/09/2018 2 2:35pm 2:49pm Hematocrit 32.8 % #L 35.0-51.0 04/09/2018 04/09/2018 2:35pm 2:49pm Mean Corpuscular 85.5 fl 78-96 04/09/2018 04/09/2018 Volume 2:35pm 2:49pm Mean Corpuscular 26.8 pg 26.8-33.4 04/09/2018 04/09/2018 Hemoglobin 2:35pm 2:49pm Mean Corpuscular 31.3 g/dl L 32.3-36.7 04/09/2018 04/09/2018 Hemoglobin Concent 2:35pm 2:49pm Red Cell 14.6 % 11.6-15.4 04/09/2018 04/09/2018 Distribution Width 2:35pm 2:49pm Platelet Count 292 K/ul 115-328 04/09/2018 04/09/2018 2:35pm 2:49pm Mean Platelet 5.9 fl L 8.4-11.8 04/09/2018 04/09/2018 Volume 2:35pm 2:49pm Neutrophils (%) 83.3 % H 44.7-82.4 04/09/2018 04/09/2018 (Auto) 2:35pm 2:49pm Lymphocytes (%) 6.9 % L 10.0-50.0 04/09/2018 04/09/2018 (Auto) 2:35pm 2:49pm Monocytes (%) 8.8 % 3.9-13.4 04/09/2018 04/09/2018 (Auto) 2:35pm 2:49pm Eosinophils (%) 0.3 % 0.0-6.43 04/09/2018 04/09/2018 (Auto) 2:35pm 2:49pm Basophils (%) 0.6 % 0.0-0.72 04/09/2018 04/09/2018 (Auto) 2:35pm 2:49pm Prothrombin Time 12.7 SECONDS H 10.3-12.3 04/09/2018 04/09/2018 2:35pm 2:53pm THERAPEUTIC LEVEL: 1.5 to 1.9 times normal range of PT Prothromb Time 1.16 04/09/2018 04/09/2018 International 2:35pm 2:53pm Recommended therapeutic range for patients receiving Ratio warfarin (coumadin) therapy: INR is 2.0 to 3.0 Recommended range for patients with mechanical prosthetic heart valves: INR is 2.5 to 3.5 Lactic Acid Level 1.85 mmoL/L 0.5-2.2 04/09/2018 04/09/2018 5:08pm 5:35pm Random Glucose 214 mg/dL H 82-115 04/09/2018 04/09/2018 2:35pm 3:00pm Blood Urea 12 mg/dL 8-23 04/09/2018 04/09/2018 Nitrogen 2:35pm 3:00pm Serum Osmolality 282 280-300 04/09/2018 04/09/2018 2:35pm 3:00pm Creatinine 1.0 mg/dL 0.70-1.20 04/09/2018 04/09/2018 2:35pm 3:00pm Glomerular > 60.00 04/09/2018 04/09/2018 GFR RESULTS ARE REPORTED IN mL/min/1.73m2. Filtration Rate 2:35pm 3:00pm Calc Normal GFR: >60mL/min Moderately decreased GFR: 30-59 mL/min Severely decreased GFR: 15-29 mL/min Kidney Failure (or Dialysis): <15 mL/min The calculated eGFR is not valid for patients younger than 18 years or older than 75 years. BUN/Creatinine 12.0 12-04/09/2018 04/09/2018 Ratio 2:35pm 3:00pm Sodium Level 138 mmol/L 135-145 04/09/2018 04/09/2018 2:35pm 3:00pm Potassium Level 4.0 mmol/L 3.5-5.2 04/09/2018 04/09/2018 2:35pm 3:00pm Chloride Level 103 mmol/L 98-108 04/09/2018 04/09/2018 2:35pm 3:00pm Carbon Dioxide 23 mmol/L 21-32 04/09/2018 04/09/2018 Level 2:35pm 3:00pm Anion Gap 16.0 mEq/L 12-04/09/2018 04/09/2018 2:35pm 3:00pm Calcium Level 9.6 mg/dL 8.8-10.2 04/09/2018 04/09/2018 2:35pm 3:00pm Magnesium Level 1.8 mg/dL 1.6-2.4 04/09/2018 04/09/2018 2:35pm 3:00pm Total Protein 8.6 g/dL 6.6-8.7 04/09/2018 04/09/2018 2:35pm 3:00pm Albumin 3.2 g/dL L 3.5-5.2 04/09/2018 04/09/2018 2:35pm 3:00pm Globulin 5.4 gm/dL 04/09/2018 04/09/2018 2:35pm 3:00pm Albumin/Globulin 0.6 >1.0 04/09/2018 04/09/2018 Ratio 2:35pm 3:00pm Total Bilirubin 0.9 mg/dL 0.0-1.2 04/09/2018 04/09/2018 2:35pm 3:00pm Aspartate Amino 16 U/L 15-40 04/09/2018 04/09/2018 Transf (AST/SGOT) 2:35pm 3:00pm Alanine 10 U/L 0-41 04/09/2018 04/09/2018 Aminotransferase 2:35pm 3:00pm (ALT/SGPT) Lipase 10 U/L L 13-60 04/09/2018 04/09/2018 2:35pm 3:00pm PN-Rpp-P-Type 5039 pg/mL H 0-450 04/09/2018 04/09/2018 Natriuretic 2:35pm 3:11pm Peptide Total Alkaline 167 U/L H 40-130 04/09/2018 04/09/2018 Phosphatase 2:35pm 3:00pm Thyroid 1.34 uIU/mL 0.36-3.74 04/09/2018 04/09/2018 Stimulating [...] indicative of an ischemic mechanism. The term MA should be used when there is evidence [...] or=4 SUGGESTIVE OF AMI >5 > 4 Procedures Procedure Status Date Provider(s) X-ray of chest, single view Completed 04/09/18 ALBINO SHEPHERD MD Encounters Encounter Location Arrival/Admit Date Discharge/Depart Date Attending Provider Departed [place] 04/09/18 12:29pm 04/09/18 6:09pm ALBINO SHEPHERD Emergency Room [facility] Recent Diagnosis
[2018-11-01] MEDS ORDERED: MELATONIN 3 MG TABLET PO PRN (14:59)
[2018-11-01] MEDS ORDERED: ONDANSETRON 4 MG/2 ML VIAL IV PRN (14:59)
[2018-11-01] MEDS ORDERED: D50W 25 GM/50 ML SYRINGE IV PRN (15:09)
[2018-11-01] MEDS ORDERED: GLUCAGON 1 MG/VIAL IM PRN (15:09)
[2018-11-01] MEDS ORDERED: SODIUM CHLORIDE 0.9% 10ML INJ IV PRN (15:55)
[2018-11-01 16:20] LABS: CKMB Creatine Kinase MB 2.5 ng/mL (0.3-3.6); Ferritin 150.2 ng/mL (26-388); Thyroid Stimulating Hormone 0.737 uIU/mL (0.360-3.740); Troponin I 0.02 ng/mL (0.0-0.045)
[2018-11-01] MEDS: INSULIN -REGULAR HUMAN 50 UNIT/0.5 ML ML SQ SCH ×2 (16:27→21:00)
--- NOTE | 2018-11-01 17:40 | RAD REPORT ---
EXAM DESCRIPTION: MRI - Brain W/Wo Cont - 11/01/2018 4:50 pm CLINICAL HISTORY: . Headache, drowsiness, CVA COMPARISON: MRA Head Wo Cont dated 11/01/2018MRA Head Wo Cont dated 11/01/2018; Head Brain Wo Cont juan jose ed 11/01/2018 TECHNIQUE: Multi-sequence, multiplanar MR imaging of the brain was performed with contrast. FINDINGS: No intracranial hemorrhage, hydrocephalus, or extra-axial fluid collection.Moderate conflu ent T2/FLAIR hyperintensity in the periventricular and deep white matter is present compatible with c hronic microvascular ischemic changes. No edema or shift of midline structures. No intracranial mass. DWI is negative for acute CVA. Prominent atrophy of the cerebellar vermis is seen. Mastoid air cells and paranasal sinuses are clear . Post-contrast images show no abnormal enhancement to suggest tumor or infection. IMPRESSION: Negative for acute CVA or other acute intracranial abnormality. Prominent atrophy of the cerebellar vermis noted. No pathologic post-contrast enhancement suspected.
[2018-11-01] MEDS: METOPROLOL TAR 25 MG TAB PO SCH (17:43)
--- NOTE | 2018-11-01 17:45 | RAD REPORT ---
EXAM DESCRIPTION: MRI - MRA Neck W/Wo Cont - 11/01/2018 4:50 pm CLINICAL HISTORY: . Headache, drowsiness, CVA symptomology. COMPARISON: Carotid Artery Bilateral dated 11/01/2018; SOFT TISSUE NECK W O CONTRAST dated 10/01/2014; MRA Head Wo Cont dated 11/01/2018; Brain W/Wo Cont dated 11/01/2018 FINDINGS: Contrast enhance 2D [id number] MR angiography of the neck vessels was performed. A left aortic arch is noted. No flow is demonstrated in the right internal carotid artery, likely indicating that it is chronicall y occluded. Flow is noted in the right common carotid artery and external carotid artery branches. Le ft common carotid artery shows normal flow. Mild narrowing at the level of the left carotid bulb is s een, less than 50% stenosis suspected based on NASCET criteria at this location. Both vertebral arteries are quite diminutive in size. 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 Less than 50% stenosis left carotid bulb noted based on NASCET criteria. Both vertebral arteries appear quite diminutive in size but patent.
[2018-11-01] MEDS: PANTOPRAZOLE 40 MG INJ IVP SCH (17:46)
--- NOTE | 2018-11-01 17:56 | RAD REPORT ---
EXAM DESCRIPTION: MRI - MRA Head Wo Cont - 11/01/2018 4:48 pm CLINICAL HISTORY: AMS, Hx of HTN/DM CVA Headache, drowsiness, CVA symptomology COMPARISON: Head Brain Wo Cont dated 11/01/2018 FINDINGS: 3D noncontrast [id number] MR angiography of the [place] was performed. Chronic occlusion of the right intracranial ICA is noted. Collateral flow to the right M1 segment and A1 segment noted via patent A-comm as well as patent right PCOM. No aneurysm seen. The vertebral art kamini show for flow however the vertebrobasilar system is quite diminutive in size. The visualized dural venous sinuses appear patent. IMPRESSION: Chronically occluded right intracranial ICA suspected.
[2018-11-01] MEDS ORDERED: PNEUMOCOCCAL VACCINE 0.5 ML IMVAC ONE (18:00)
--- NOTE | 2018-11-01 18:24 | RAD REPORT ---
EXAM DESCRIPTION: US - CP - 11/01/2018 5:27 pm CLINICAL HISTORY: AMS, Hx of HTN/DM Headache, drowsiness, TIA COMPARISON: SOFT TISSUE NECK W O CONTRAST dated 10/01/2014; MRA Head Wo Cont dated 11/01/2018 TECHNIQUE: Real-time sonographic evaluation of both carotid systems was performed. Doppler interroga tion was performed with waveform tracing bilaterally. FINDINGS: No flow is visualized in the right internal carotid artery compatible with chronic occlusi on. The left internal carotid artery is patent without evidence of a hemodynamically significant stenosis . Diminutive vertebral artery seen. IMPRESSION: Chronic occlusion right internal carotid artery. No hemodynamically significant left-sided carotid stenosis.
--- NOTE | 2018-11-01 18:39 | RAD REPORT ---
EXAM DESCRIPTION: CT - Abdomen Pelvis Wo Contrast - 11/01/2018 3:42 pm CLINICAL HISTORY: Abdominal pain. Evaluate for pancreatitis COMPARISON: No comparisons TECHNIQUE: CT imaging of the abdomen and pelvis was performed without contrast. Solid organ, bowel a nd vascular assessment is limited due to lack of IV and oral contrast. All CT scans are performed using dose optimization technique as appropriate and may include automated exposure control or mA/KV adjustment according to patient size. FINDINGS: The lower lung [place] are clear.The heart is mildly enlarged. The liver, spleen, pancreas, adrenal glands and left kidney are within normal limits for a limited no n-contrast examination. Tiny nonobstructing right renal calculi in the calices suspected. Solid organ assessment is quite limited due to lack intra-abdominal fat and lack of contrast material. No bowel obstruction, free air, free fluid or abscess. Moderate stool is present in the colon. The osseous structures are within normal limits. IMPRESSION: No acute intra-abdominal or pelvic findings. Study is quite limited due to lack of contr ast material and a paucity of intra-abdominal fat planes. A limited non-contrast examination was performed as detailed.
--- NOTE | 2018-11-01 20:36 | RAD REPORT ---
EXAM DESCRIPTION: RAD - Chest Single View - 11/01/2018 11:48 am CLINICAL HISTORY: AMS Chest pain. COMPARISON: CHEST SINGLE VIEW dated 10/01/2014 FINDINGS: Portable technique limits examination quality. The lungs are grossly clear. The heart is normal in size. No displaced fractures. IMPRESSION: No acute intrathoracic process suspected.
[2018-11-01] MEDS ORDERED: APIXABAN 5 MG TABLET PO SCH (21:00)
[2018-11-01] MEDS ORDERED: FAMOTIDINE 20 MG TAB PO SCH (21:00)
[2018-11-01 23:37] LABS: CKMB Creatine Kinase MB 2.9 ng/mL (0.3-3.6); Troponin I 0.03 ng/mL (0.0-0.045)
[2018-11-02] MEDS ORDERED: ENOXAPARIN 40 MG/0.4 ML SQ SCH (01:00)
[2018-11-02] MEDS ORDERED: ENOXAPARIN 80 MG/0.8 ML SQ SCH ×2 (02:00)
[2018-11-02] MEDS: METOPROLOL TAR 25 MG TAB PO SCH (06:00)
[2018-11-02 06:14] LABS: Absolute Lymphocytes (CBC) 0.7 K/uL (0.7-4.9); Absolute Monocytes 0.2 K/uL (0.1-1.3); Absolute Neutrophil 3.1 K/uL (1.8-8.0); Eosinophils % 0.6 % (0-4.4); Lymphocytes % 17.3 % (15.3-44.8); MPV 8.5 fL (7.6-11.3); Monocytes % 5.5 % (3.3-12.3); RBC Red Blood Cell Count 3.49 M/uL (4.33-5.43)
[2018-11-02 06:33] LABS: BUN Blood Urea Nitrogen 12 mg/dL (7-18); Bicarbonate 25 mmol/L (21-32); Glucose Level 158 mg/dL (74-106); HDL Cholesterol 73 mg/dL (40-60); LDL Cholesterol, Calculated 59 (<130); Lipase 133 U/L (73-393); Magnesium 1.7 mg/dL (1.8-2.4); Potassium 3.7 mmol/L (3.5-5.1); Sodium Level 144 mmol/L (136-145)
[2018-11-02] MEDS: INSULIN -REGULAR HUMAN 50 UNIT/0.5 ML ML SQ SCH ×2 (07:30→11:17)
--- NOTE | 2018-11-02 08:42 | EKG ---
Test Date: 2018-11-01 Test Time: 10:04:20 Environmental Conservation Officer: JONNATHAN MEASUREMENT RESULTS: Intervals: Rate: 88 NE: 178 QRSD: 78 QT: 430 QTc: 520 [place]: P: 68 NE: 178 QRS: 12 T: 80 INTERPRETIVE STATEMENTS: Normal sinus rhythm Possible Left atrial enlargement Nonspecific T wave abnormality Prolonged QT Abnormal ECG Compared to ECG 10/02/2014 06:35:02 T-wave abnormality now present Prolonged QT interval now present Sinus tachycardia no longer present Atrial premature complex(es) no longer present Electronically Signed On 11-02-18 08:40:27 CDT by Stevo Elizondo
[2018-11-02] MEDS ORDERED: LOPERAMIDE HCL 2 MG CAPSULE PO PRN (08:55)
[2018-11-02] MEDS ORDERED: LORAZEPAM 0.5 MG TABLET PO PRN (08:55)
[2018-11-02] MEDS ORDERED: THIAMINE HCL 100 MG TABLET PO SCH (09:00)
[2018-11-02] MEDS ORDERED: METFORMIN ER 500 MG TAB PO SCH (09:00)
[2018-11-02] MEDS ORDERED: APIXABAN 5 MG TABLET PO SCH (09:00)
[2018-11-02] MEDS ORDERED: THIAMINE MONONITRATE PO SCH (09:00)
[2018-11-02] MEDS ORDERED: CYANOCOBALAMIN 1,000 MCG TAB PO SCH (09:00)
[2018-11-02] MEDS ORDERED: KCL 20 MEQ/100 mL IVPB 20 MEQ/100 ML BAG IV SCH (09:00)
[2018-11-02] MEDS ORDERED: VITAMIN B COMPLEX 1 CAP PO SCH (09:00)
--- NOTE | 2018-11-02 09:01 | P.DS ---
Admission Date: 11/01/18 Discharge Date: 11/02/18 Primary Care Provider: [facility] Disposition: TRANSFER TO [facility] Discharge Condition: GOOD Reason for Admission: Altered mental status Consultations: Neurology-Dr. Rivero Procedures: MRI Brain: COMPARISON: MRA Head Wo Cont dated 11/01/2018MRA Head Wo Cont dated 11/01/2018; Head Brain Wo Cont dated 11/01/2018 TECHNIQUE: Multi-sequence, multiplanar MR imaging of the brain was performed with contrast. FINDINGS: No intracranial hemorrhage, hydrocephalus, or extra-axial fluid collection.Moderate confluent T2/FLAIR hyperintensity in the periventricular and deep white matter is present compatible with chronic microvascular ischemic changes. No edema or shift of midline structures. No intracranial mass. DWI is negative for acute CVA. Prominent atrophy of the cerebellar vermis is seen. Mastoid air cells and paranasal sinuses are clear. Post-contrast images show no abnormal enhancement to suggest tumor or infection. IMPRESSION: Negative for acute CVA or other acute intracranial abnormality. Prominent atrophy of the cerebellar vermis noted. No pathologic post-contrast enhancement suspected. MRA Brain: COMPARISON: Head Brain Wo Cont dated 11/01/2018 FINDINGS: 3D noncontrast [id number] MR angiography of the [place] of [place] was performed. Chronic occlusion of the right intracranial ICA is noted. Collateral flow to the right M1 segment and A1 segment noted via patent A-comm as well as patent right PCOM. No aneurysm seen. The vertebral artery show for flow however the vertebrobasilar system is quite diminutive in size. The visualized dural venous sinuses appear patent. IMPRESSION: Chronically occluded right intracranial ICA suspected. MRA Neck: COMPARISON: Carotid Artery Bilateral dated 11/01/2018; SOFT TISSUE NECK W O CONTRAST dated 10/01/2014; MRA Head Wo Cont dated 11/01/2018; Brain W/Wo Cont dated 11/01/2018 FINDINGS: Contrast enhance 2D [id number] MR angiography of the neck vessels was performed. A left aortic arch is noted. No flow is demonstrated in the right internal carotid artery, likely indicating that it is chronically occluded. Flow is noted in the right common carotid artery and external carotid artery branches. Left common carotid artery shows normal flow. Mild narrowing at the level of the left carotid bulb is seen, less than 50% stenosis suspected based on NASCET criteria at this location. Both vertebral arteries are quite diminutive in size. 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 Less than 50% stenosis left carotid bulb noted based on NASCET criteria. Both vertebral arteries appear quite diminutive in size but patent. Carotid doppler: COMPARISON: SOFT TISSUE NECK W O CONTRAST dated 10/01/2014; MRA Head Wo Cont dated 11/01/2018 TECHNIQUE: Real-time sonographic evaluation of both carotid systems was performed. Doppler interrogation was performed with waveform tracing bilaterally. FINDINGS: No flow is visualized in the right internal carotid artery compatible with chronic occlusion. The left internal carotid artery is patent without evidence of a hemodynamically significant stenosis. Diminutive vertebral artery seen. IMPRESSION: Chronic occlusion right internal carotid artery. No hemodynamically significant left-sided carotid stenosis. ECHO: Obtained and pending at discharge. CT scan: COMPARISON: No comparisons TECHNIQUE: CT imaging of the abdomen and pelvis was performed without contrast. Solid organ, bowel and vascular assessment is limited due to lack of IV and oral contrast. All CT scans are performed using dose optimization technique as appropriate and may include automated exposure control or mA/KV adjustment according to patient size. FINDINGS: The lower lung castellon are clear.The heart is mildly enlarged. The liver, spleen, pancreas, adrenal glands and left kidney are within normal limits for a limited non-contrast examination. Tiny nonobstructing right renal calculi in the calices suspected. Solid organ assessment is quite limited due to lack intra-abdominal fat and lack of contrast material. No bowel obstruction, free air, free fluid or abscess. Moderate stool is present in the colon. The osseous structures are within normal limits. IMPRESSION: No acute intra-abdominal or pelvic findings. Study is quite limited due to lack of contrast material and a paucity of intra-abdominal fat planes. A limited non-contrast examination was performed as detailed. 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 Patient is a resident at [facility]. Patient with history of diabetes, hypertension and takes chronic anti coagulation therapy for history of DVT. ER reports that [facility] mentioned that he was doing well prior to 4:00 p.m. yesterday. Patient was found confused today. He was brought in for further evaluation. No indication of chest pain, shortness of breath, fever or chills noted. Upon initial evaluation in the emergency room vital signs were stable. He was afebrile. Patient did not appear in any respiratory distress. Initial workup so for unremarkable. CT head negative. Chest x-ray negative. Hemoglobin 10.5 , white count 5.6. Sodium 141, potassium 4.2, BUN of 13, creatinine 0.94 with a GFR of greater than 90. Glucose was elevated upon arrival. Lactic acid negative. Pro calcitonin negative. Urine unremarkable. Patient was given Narcan in the ER. Patient was admitted for further evaluation. When I saw the patient in the ER, he appeared confused but able to answer questions appropriately with nodding and with voice. He appeared weak. He was able to move all 4s. Patient with history of left below-knee amputation. Spoke to concerning the patient. He has major medical problems. She reports that he likely has dementia. The poor oral intake recently. Patient recently in rehab and sent to nursing. Patient normally oriented x2. Hospital Course: Patient presented with altered mental status mainly confusion. This was reported by the [facility]. reported patient has underlying dementia normally oriented x2. Patient has been to rehab and sent to the [facility] to continue rehabilitation. There was some report of some nausea. When the patient arrived to the emergency room, patient was alert and appropriate to commands. Patient was admitted for further evaluation. Lab unremarkable. MRI showed no acute stroke. Chronic changes noted. Carotid Doppler shows chronic occlusion of right internal carotid artery. CT scan of the abdomen unremarkable. Lab unremarkable except underlying iron and B12 deficiency. No evidence infection identified. Patient with underlying diabetes, hypertension, history of left below-knee amputation, chronic anti coagulation therapy, chronic constipation and likely vascular dementia. Patient has done well in his stay. Case discussed with Neurology. Medications reviewed. Patient is taking Modafinil. Recommendation is to discontinue Modafinil as this may cause some confusion and decrease appetite, which has been reported by and NH. This was recommended by Neurology. No further intervention was required. At discharge patient will continue with his current medications including metformin , metoprolol, vitamin B12, iron supplementation, and Eliquis. Patient has DM. His BS was slightly elevated in the ER. No DKA noted. This has remained stable. At discharge patient will continue with his current medication -metformin 500 mg 1 pill twice daily. Recommend to maintain blood sugars less 140 fasting and less than 200 after meals. Patient should be monitored for hypoglycemia. Further adjustment in medication can be done at the [facility]. Patient with hypertension. This has remained stable. At discharge patient will continue with metoprolol 25 mg 1 pill twice daily. Recommend to maintain blood pressures less 150/80. Further adjustment can be done at the [facility]. Patient with history of left below-knee amputation. Stump appears clean. Patient with history of DVT and chronic right internal carotid artery occlusion. Patient on chronic anti coagulation therapy. At discharge he will continue with Eliquis 5 mg 1 pill twice daily. Recommend to follow up with cardiology as an outpatient to further monitor. Patient with chronic constipation. Patient may continue with current medications. Patient with anemia of chronic disease iron and B12 deficiency. Supplementation is recommended. Patient will continue with iron 325 mg daily and vitamin-B 12 1000 mg daily. Further monitoring and adjustment can be done at the [facility]. Patient likely with underlying GERD. Patient will continue with Pepcid 20 mg 1 pill twice daily. Aspiration, fall precautions to be in place. Vital Signs/Physical Exam: Temp Pulse Resp BP Pulse Ox 98.9 F 80 18 150/70 H 97 11/02/18 04:00 11/02/18 06:00 11/02/18 04:00 11/02/18 06:00 11/02/18 04:00 General: Alert, In no apparent distress, Cooperative HEENT: Atraumatic Neck: Supple Respiratory: Clear to auscultation bilaterally, Normal air movement Cardiovascular: Normal pulses, Regular rate/rhythm Gastrointestinal: Normal bowel sounds, Soft and benign, Non-distended, No tenderness, No masses, No rebound, No guarding Musculoskeletal: No erythema, No tenderness, No warmth Integumentary: No erythema, No warmth, No cyanosis Neurological: Normal speech, Normal strength at 5/5 x4 extr, Normal tone, Dementia Laboratory Data at Discharge: WBC 4.1 K/uL (4.3-10.9) L D 11/02/18 05:38 Hgb 10.5 g/dL (13.6-17.9) L 11/02/18 05:38 Hct 31.0 % (39.6-49.0) L 11/02/18 05:38 Plt Count 184 K/uL (152-406) 11/02/18 05:38 PT 15.1 SECONDS (9.5-12.5) H 11/01/18 10:10 INR 1.29 11/01/18 10:10 APTT 32.2 SECONDS (24.3-36.9) 11/01/18 10:10 Sodium 144 mmol/L (136-145) 11/02/18 05:38 Potassium 3.7 mmol/L (3.5-5.1) 11/02/18 05:38 BUN 12 mg/dL (7-18) 11/02/18 05:38 Creatinine 0.82 mg/dL (0.55-1.3) 11/02/18 05:38 Glucose 158 mg/dL (74-106) H 11/02/18 05:38 Magnesium 1.7 mg/dL (1.8-2.4) L 11/02/18 05:38 Total Bilirubin 0.3 mg/dL (0.2-1.0) 11/01/18 10:10 AST 17 U/L (15-37) 11/01/18 10:10 ALT 16 U/L (12-78) 11/01/18 10:10 Alkaline Phosphatase 68 U/L (45-117) 11/01/18 10:10 Troponin I 0.03 ng/mL (0.0-0.045) 11/01/18 23:14 Triglycerides 60 mg/dL (<150) 11/02/18 05:38 Cholesterol 144 mg/dL (<200) 11/02/18 05:38 HDL Cholesterol 73 mg/dL (40-60) H 11/02/18 05:38 Cholesterol/HDL Ratio 1.97 11/02/18 05:38 Lipase 133 U/L (73-393) 11/02/18 05:38 Home Medications: Acetaminophen [Tylenol] 325 mg PO Q6HP PRN 11/01/18 Apixaban [Eliquis] 5 mg PO DAILY 11/01/18 Folic Acid/Vit B Complex and C [Cvs Super S-Qsuunwp-Ggw C Cplt] 400 mg PO DAILY 11/01/18 LORazepam [Ativan*] 0.5 mg PO Q4HP PRN 11/01/18 Loperamide HCl [Imodium A-D] 2 mg PO Q6HP PRN 11/01/18 Loperamide HCl [Imodium A-D] 2 mg PO Q6HP PRN 11/01/18 Melatonin 3 mg PO BEDTIME 11/01/18 Metformin ER [Glucophage ER*] 500 mg PO BID 11/01/18 Metoprolol Succinate [Toprol Xl*] 25 mg PO BID 11/01/18 Polyethylene Glycol 3350 [Miralax] 17 gm PO BEDTIME 11/01/18 Thiamine Mononitrate (Vit B1) [Cyto B-1] 100 gm PO DAILY 11/01/18 Cyanocobalamin (Vitamin B-12) [Vitamin B-12] 1,000 mg PO DAILY #90 capsule 11/02 Famotidine [Pepcid] 20 mg PO BID #60 tab 11/02/18 Ferrous Sulfate [Iron] 325 mg PO DAILY #30 tablet 11/02/18 New Medications: Cyanocobalamin (Vitamin B-12) [Vitamin B-12] 1,000 mg PO DAILY #90 capsule Famotidine [Pepcid] 20 mg PO BID #60 tab Ferrous Sulfate [Iron] 325 mg PO DAILY #30 tablet Patient Discharge Instructions: 1. Patient to return to the [facility]. 2. Patient presented with altered mental status mainly confusion. This was reported by the [facility]. reported patient has underlying dementia normally oriented x2. Patient has been to rehab and sent to the [facility] to continue rehabilitation. There was some report of some nausea. When the patient arrived to the emergency room, patient was alert and appropriate to commands. Patient was admitted for further evaluation. Lab unremarkable. MRI showed no acute stroke. Chronic changes noted. Carotid Doppler shows chronic occlusion of right internal carotid artery. CT scan of the abdomen unremarkable. Lab unremarkable except underlying iron and B12 deficiency. No evidence infection identified. Patient with underlying diabetes, hypertension, history of left below-knee amputation, chronic anti coagulation therapy, chronic constipation and likely vascular dementia. Patient has done well in his stay. Case discussed with Neurology. Medications reviewed. Patient is taking Modafinil. Recommendation is to discontinue Modafinil as this may cause some confusion and decrease appetite, which has been reported by and NH. This was recommended by Neurology. No further intervention was required. At discharge patient will continue with his current medications including metformin , metoprolol, vitamin B12, iron supplementation, and Eliquis. 3. Patient has DM. His BS was slightly elevated in the ER. No DKA noted. This has remained stable. At discharge patient will continue with his current medication- metformin 500 mg 1 pill twice daily. Recommend to maintain blood sugars less 140 fasting and less than 200 after meals. Patient should be monitored for hypoglycemia. Further adjustment in medication can be done at the [facility]. 4. Patient with hypertension. This has remained stable. At discharge patient will continue with metoprolol 25 mg 1 pill twice daily. Recommend to maintain blood pressures less 150/80. Further adjustment can be done at the [facility]. 5. Patient with history of left below-knee amputation. Stump appears clean. 6. Patient with history of DVT and chronic right internal carotid artery occlusion. Patient on chronic anti coagulation therapy. At discharge he will continue with Eliquis 5 mg 1 pill twice daily. Recommend to follow up with cardiology as an outpatient to further monitor. 7. Patient with chronic constipation. Patient may continue with current medications. 8. Patient with anemia of chronic disease iron and B12 deficiency. Supplementation is recommended. Patient will continue with iron 325 mg daily and vitamin-B 12 1000 mg daily. Further monitoring and adjustment can be done at the [facility]. 9. Patient likely with underlying GERD. Patient will continue with Pepcid 20 mg 1 pill twice daily. 10. Aspiration, fall precautions to be in place. Diet: ADA Activity: Fall precautions Time spent managing pt's care (in minutes): 55
[2018-11-02] MEDS ORDERED: POTASSIUM CL SA 10 MEQ TAB PO ONE (09:12)
[2018-11-02] MEDS: PANTOPRAZOLE 40 MG INJ IVP SCH (09:59)
[2018-11-02 10:10] VITALS: O2SAT 99
[2018-11-02 12:00] VITALS: BP 171/81; TEMP 98.1
[2018-11-02 13:03] VITALS: BMI 21.0
--- NOTE | 2018-11-02 14:52 | ECHO ---
HEIGHT: 5 ft 9 in WEIGHT: 142 lb 8 oz DATE OF STUDY: 11/02/[address]: Ochoa Lui DO 2-DIMENSIONAL: YES M.MODE: YES DOPPLER: YES COLOR FLOW: YES TDS: NO PORTABLE: NO DEFINITY: NO BUBBLE STUDY: NO DIAGNOSIS: ALTERED MENTAL STATUS/ HISTORY OF HYPERTENSION CARDIAC HISTORY: CATHERIZATION: SURGERY: PROSTHETIC VALVE: PACEMAKER: MEASUREMENTS (cm) DIASTOLIC (NORMALS) SYSTOLIC (NORMALS) IVSd 1.1 (0.6-1.2) LA Diam 3.7 (1.9-4.0) LVEF 40% LVIDd 5.3 (3.5-5.7) LVIDs 4.2 (2.0-3.5) %FS 20% LVPWd 1.3 (0.6-1.2) Ao Diam 3.0 (2.0-3.7) 2 DIMENSIONAL ASSESSMENT: RIGHT ATRIUM: NORMAL LEFT ATRIUM: NORMAL RIGHT VENTRICLE: NORMAL LEFT VENTRICLE: LEFT VENTRICULAR HYPERTROPHY TRICUSPID VALVE: NORMAL MITRAL VALVE: NORMAL PULMONIC VALVE: NORMAL AORTIC VALVE: NORMAL PERICARDIAL EFFUSION: SMALL TO MODERATE AORTIC ROOT: NORMAL LEFT VENTRICULAR WALL MOTION: GLOBAL HYPOKINESIS. DOPPLER/COLOR FLOW: MILD MITRAL REGURGITATION. TRACE OF TRICUSPID REGURGITATION. NORMAL RIGHT VENTRICULAR SYSTOLIC PRESSURE. COMMENTS: DEPRESSED LEFT VENTRICULAR EJECTION FRACTION. LEFT VENTRICULAR HYPERTROHY. CONSIDER AMYLOIDOSIS. SMALL TO MODERATE PERICARDIAL EFFUSION WITHOUT TAMPONADE. MILD CLAUDIA REGURGITATION. TRACE OF TRICUSPID REGURGITATION. TECHNOLOGIST: TANNER BARRERA
--- NOTE | 2018-11-07 09:07 | EEG ---
CHART: [id number] TEST ID#: [id number] DATE OF STUDY: 11/02/2018 THE EEG WAS RECORDED PORTABLE IN THE PATIENTS ROOM ON A 17 CHANNEL MACHINE. ELECTRODES WERE APPLIED IN THE USUAL MANNER USING THE INTERNATIONAL 10-20 SYSTEM. THE WAKING BACKGROUND RHYTHM IN THIS RECORD CONSISTS OF WELL DEVELOPED AND WELL ORGANIZED WAVES OF 10 HZ., MAXIMAL IN THE POSTERIOR HEAD REGIONS WHICH ATTENUATE NORMALLY WITH EYE OPENING. LOW-VOLTAGE 18-22 HZ ACTIVITY IS EXPRESSED IN THE FRONTAL REGIONS. THERE ARE NO FOCAL OR LATERALIZING FEATURES. NO EPILEPTIFORM ACTIVITY APPEARS. SLEEP OCCURRED NATURALLY. IN ADDITION NORMAL SLEEP PATTERNS ARE PRESENT. HYPERVENTILATION WAS NOT PERFORMED. PHOTIC STIMULATION PRODUCED FAIR DRIVING BILATERALLY. IMPRESSION: NORMAL EEG FOR THE AGE OF THE PATIENT IN [place], DROWSINESS AND SLEEP.
== END 2018-11-02 15:55 ==
LOC: ER 09:53 → ERHOLD 11:55 → 4TH 13:52
PROVIDERS: ADMIT Family Medicine; ATTEND Family Medicine
DX: R41.82 Altered mental status, unspecified (principal); E11.65 Type 2 diabetes mellitus with hyperglycemia; I10 Essential (primary) hypertension; I08.1 Rheumatic disorders of both mitral and tricuspid valves; I31.3 Pericardial effusion (noninflammatory); I65.23 Occlusion and stenosis of bilateral carotid arteries; K59.09 Other constipation; E53.8 Deficiency of other specified B group vitamins; D50.9 Iron deficiency anemia, unspecified; F01.50 Vascular dementia, unspecified severity, without behavioral disturbance, psychotic disturbance, mood disturbance, and anxiety; R94.31 Abnormal electrocardiogram [ECG] [EKG]; E78.5 Hyperlipidemia, unspecified; Z79.01 Long term (current) use of anticoagulants; Z79.84 Long term (current) use of oral hypoglycemic drugs; Z79.82 Long term (current) use of aspirin; Z79.899 Other long term (current) drug therapy; Z89.512 Acquired absence of left leg below knee; Z86.718 Personal history of other venous thrombosis and embolism
CPT/HCPCS: 96365; 93005; 93306; 95819; 87040 ×2; 85025 ×2; 80048 ×2; 36415; 82140; 83735; 82550 ×3; 85610; 80061; 82962 ×6; 80076; 83605; 85730; 84443; 84484 ×3; 82553 ×3; 84439; 82728; 82607; 83690 ×2; 83540; 84145; 84466; 70450; 74176; 71045; 93880; 70553; 70544; 70549; 97162; 51702; 96375; 99291; A9577; J2310; C9113 ×2; J1650; J0696; J7030; J2405; G0378 ×2; 81003; 81015